=== PATIENT | male | born 1955 | race Caucasian/White ===

== ENCOUNTER 2017-10-22 15:07 | Inpatient (IN) ==
[2017-10-22] MEDS ORDERED: ONDANSETRON 4 MG/2 ML VIAL IV ONE (15:52)
[2017-10-22] MEDS ORDERED: ASPIRIN 325 MG TABLET PO STA (15:52)
[2017-10-22] MEDS ORDERED: MORPHINE 2 MG/1 ML SYRINGE IV STA (15:53)
[2017-10-22] MEDS ORDERED: MORPHINE 2 MG/1 ML SYRINGE ONE (16:29)
[2017-10-22] MEDS ORDERED: ONDANSETRON 4 MG/2 ML VIAL ONE (16:29)
[2017-10-22] MEDS ORDERED: ASPIRIN 325 MG TABLET ONE (16:29)
[2017-10-22 16:47] LABS: Basophils % 0.6 % (0.0-0.8); Eosinophils % 0.6 % (0.00-10.9); Hemoglobin 13.2 GM/DL (14.0-18.0); Immature Granulocytes % 0.2 %; Immature Granulocytes Absolute 0.01 #; Lymphocytes # 1.9 10*3/uL (1.4-4.0); Lymphocytes % 39.1 % (21.2-54.2); Mean Corpuscular HGB Conc 35.7 GM/DL (32-36); Mean Corpuscular Hemoglobin 31 PG (27-34); Mean Platelet Volume 9.6 FL (9.6-12.0); Monocytes # 0.3 10*3/uL (0.11-0.8); Monocytes % 6.9 % (1.7-12.7); Neutrophils # 2.6 10*3/uL (1.4-7.4); Neutrophils % 52.6 % (38.7-73.9); Platelet Count 181 T/CUMM (130-400); Red Cell Distribution Width 12.1 % (9.3-17.3)
[2017-10-22 16:58] LABS: PT Patient Result 10.8 SECS
[2017-10-22 17:07] LABS: Alanine Aminotransferase 18 U/L (16-61); Albumin 4.5 G/DL (3.4-5.0); Alkaline Phosphatase 51 U/L (45-117); Aspartate Amino Transferase 16 U/L (0-37); Blood Urea Nitrogen 14 MG/DL (7-18); Calcium 9.2 MG/DL (8.5-10.1); Glucose 87 MG/DL (74-106); Osmolality,Calculated 276.5 MOS/KG (273-304); Potassium 3.4 MMOL/L (3.5-5.1); Sodium 139 MMOL/L (136-145); Total Protein 7.2 G/DL (6.4-8.3); Troponin I Only < 0.015 NG/ML (0.00-0.045)
[2017-10-22 17:09] LABS: PT Patient Result 10.9 SECS
[2017-10-22] MEDS ORDERED: ALUM/MAG/SIMETH/LIDO VISC 1:1 30 ML BOTTLE PO PRN (18:25)
[2017-10-22] MEDS ORDERED: NITROGLYCERIN SL 0.4 MG TABLET SL PRN (18:25)
[2017-10-22 18:43] LABS: Risk Ratio 3.94; VLDL CHOLESTEROL 35.4 MG/DL
[2017-10-22] MEDS: GABAPENTIN 300 MG CAPSULE PO SCH (21:35)
[2017-10-22] MEDS: FAMOTIDINE 20 MG TABLET PO SCH (21:35)
[2017-10-23] MEDS ORDERED: POTASSIUM CHLORIDE 20 MEQ TABLET PO PRN (08:34)
[2017-10-23 08:50] LABS: Eosinophils % 0.8 % (0.00-10.9); Hematocrit 37.5 VOL% (42.0-52.0); Hemoglobin 13.6 GM/DL (14.0-18.0); Immature Granulocytes % 0.3 %; Immature Granulocytes Absolute 0.01 #; Lymphocytes # 1.7 10*3/uL (1.4-4.0); Lymphocytes % 42.8 % (21.2-54.2); Mean Corpuscular HGB Conc 36.3 GM/DL (32-36); Mean Corpuscular Hemoglobin 31 PG (27-34); Mean Corpuscular Volume 85.2 FL (87-102); Mean Platelet Volume 9.6 FL (9.6-12.0); Monocytes # 0.3 10*3/uL (0.11-0.8); Monocytes % 7.6 % (1.7-12.7); Neutrophils # 1.9 10*3/uL (1.4-7.4); Neutrophils % 47.5 % (38.7-73.9); Platelet Count 192 T/CUMM (130-400); Red Cell Distribution Width 12.1 % (9.3-17.3)
[2017-10-23] MEDS ORDERED: MAGNESIUM SULF RIDER 2 GM in PREMIX 1 EACH IV PRN (08:58)
[2017-10-23] MEDS ORDERED: POTASSIUM CHLORIDE RIDER 10 MEQ in PREMIX 1 EACH IV PRN (08:58)
[2017-10-23] MEDS ORDERED: DIAZEPAM 5 MG TABLET PO ONE (08:58)
[2017-10-23] MEDS ORDERED: diphenhydrAMINE CAP 25 MG CAPSULE PO ONE (08:58)
[2017-10-23] MEDS ORDERED: SODIUM CHLORIDE 0.9% 1,000 ML IV SCH (09:00)
[2017-10-23] MEDS ORDERED: amLODIPine 10 MG TABLET PO SCH (09:00)
[2017-10-23] MEDS ORDERED: hydroCHLOROthiazide 25 MG TABLET PO SCH (09:00)
[2017-10-23] MEDS ORDERED: CLOPIDOGREL 75 MG TABLET PO SCH (09:00)
[2017-10-23] MEDS ORDERED: SIMVASTATIN 40 MG TABLET PO SCH (09:00)
[2017-10-23 09:10] LABS: Calcium 9.4 MG/DL (8.5-10.1); Potassium 3.9 MMOL/L (3.5-5.1)
[2017-10-23] MEDS: FAMOTIDINE 20 MG TABLET PO SCH ×2 (10:22→20:57)
[2017-10-23] MEDS: BENAZEPRIL 10 MG TABLET PO SCH (12:28)
[2017-10-23] MEDS ORDERED: LIDOCAINE 1% 20 ML VIAL ONE (13:04)
[2017-10-23] MEDS ORDERED: MIDAZOLAM 2 MG/2 ML VIAL ONE (13:04)
[2017-10-23] MEDS ORDERED: NITROGLYCERIN DRIP 50 MG/250 ML BOTTLE IV ONE (13:04)
[2017-10-23] MEDS ORDERED: HEPARIN/NACL 0.9% 2 UNITS/ML 2,000 ML IV ONE (13:04)
[2017-10-23] MEDS ORDERED: VERAPAMIL 5 MG/2 ML VIAL ONE (13:05)
[2017-10-23] MEDS ORDERED: fentaNYL 100 MCG/2 ML VIAL ONE (13:05)
[2017-10-23] MEDS ORDERED: ENOXAPARIN 60 MG/0.6 ML SYRINGE ONE (13:23)
[2017-10-23] MEDS: ENOXAPARIN 80 MG/0.8 ML SYRINGE SUBCUT SCH (17:38)
[2017-10-23] MEDS ORDERED: ACETAMINOPHEN 500 MG TABLET PO PRN (19:26)
[2017-10-23] MEDS: METOPROLOL TARTRATE 50 MG TABLET PO SCH (20:57)
[2017-10-23] MEDS: GABAPENTIN 300 MG CAPSULE PO SCH (20:57)
[2017-10-23] MEDS ORDERED: METOPROLOL TARTRATE 50 MG TABLET PO SCH (21:00)
[2017-10-24 05:41] LABS: Calcium 8.5 MG/DL (8.5-10.1); Osmolality,Calculated 283.3 MOS/KG (273-304)
[2017-10-24 06:16] LABS: Basophils % 0.7 % (0.0-0.8); Eosinophils # 0.1 10*3/uL (0.0-0.87); Eosinophils % 1.4 % (0.00-10.9); Hematocrit 38.8 VOL% (42.0-52.0); Hemoglobin 13.4 GM/DL (14.0-18.0); Immature Granulocytes % 0.2 %; Immature Granulocytes Absolute 0.01 #; Lymphocytes # 2.8 10*3/uL (1.4-4.0); Lymphocytes % 48.3 % (21.2-54.2); Mean Corpuscular HGB Conc 34.5 GM/DL (32-36); Mean Corpuscular Hemoglobin 31 PG (27-34); Mean Corpuscular Volume 88.6 FL (87-102); Monocytes # 0.4 10*3/uL (0.11-0.8); Monocytes % 7.6 % (1.7-12.7); Neutrophils # 2.4 10*3/uL (1.4-7.4); Neutrophils % 41.8 % (38.7-73.9); Platelet Count 156 T/CUMM (130-400); Red Blood Count 4.38 MC/CUMM (3.8-5.5); Red Cell Distribution Width 11.9 % (9.3-17.3); White Blood Count 5.8 T/CUMM (4-12)
[2017-10-24] MEDS: ENOXAPARIN 80 MG/0.8 ML SYRINGE SUBCUT SCH ×2 (06:16→17:06)
[2017-10-24] MEDS: FAMOTIDINE 20 MG TABLET PO SCH ×2 (09:00→20:15)
[2017-10-24] MEDS: METOPROLOL TARTRATE 50 MG TABLET PO SCH ×2 (09:00→20:15)
[2017-10-24] MEDS: amLODIPine 5 MG TABLET PO SCH (09:00)
[2017-10-24] MEDS: BENAZEPRIL 10 MG TABLET PO SCH (09:00)
[2017-10-24] MEDS: SIMVASTATIN 20 MG TABLET PO SCH (09:01)
[2017-10-24] MEDS: GABAPENTIN 300 MG CAPSULE PO SCH (20:14)
[2017-10-24] MEDS: MORPHINE 2 MG/1 ML SYRINGE IV PRN (20:15)
[2017-10-25 05:29] LABS: Basophils % 0.9 % (0.0-0.8); Eosinophils % 0.9 % (0.00-10.9); Hemoglobin 13.2 GM/DL (14.0-18.0); Immature Granulocytes % 0.2 %; Immature Granulocytes Absolute 0.01 #; Lymphocytes # 2.2 10*3/uL (1.4-4.0); Lymphocytes % 51.2 % (21.2-54.2); Mean Corpuscular HGB Conc 34.7 GM/DL (32-36); Mean Corpuscular Hemoglobin 30 PG (27-34); Mean Corpuscular Volume 85.8 FL (87-102); Mean Platelet Volume 9.5 FL (9.6-12.0); Monocytes # 0.4 10*3/uL (0.11-0.8); Monocytes % 8.1 % (1.7-12.7); Neutrophils # 1.7 10*3/uL (1.4-7.4); Neutrophils % 38.7 % (38.7-73.9); Platelet Count 173 T/CUMM (130-400); Red Blood Count 4.43 MC/CUMM (3.8-5.5); Red Cell Distribution Width 11.9 % (9.3-17.3); White Blood Count 4.3 T/CUMM (4-12)
[2017-10-25 06:19] LABS: Calcium 8.7 MG/DL (8.5-10.1); Osmolality,Calculated 284.1 MOS/KG (273-304); Potassium 3.9 MMOL/L (3.5-5.1)
[2017-10-25] MEDS: METOPROLOL TARTRATE 50 MG TABLET PO SCH ×2 (09:17→20:30)
[2017-10-25] MEDS: ENOXAPARIN 80 MG/0.8 ML SYRINGE SUBCUT SCH ×2 (09:18→21:21)
[2017-10-25] MEDS: FAMOTIDINE 20 MG TABLET PO SCH ×2 (09:18→21:21)
[2017-10-25] MEDS: amLODIPine 5 MG TABLET PO SCH (09:18)
[2017-10-25] MEDS: SIMVASTATIN 20 MG TABLET PO SCH (09:18)
[2017-10-25] MEDS: BENAZEPRIL 10 MG TABLET PO SCH (09:18)
[2017-10-25] MEDS ORDERED: LACTULOSE 20 GM/30 ML UDCUP PO PRN (13:17)
[2017-10-25] MEDS: MORPHINE 2 MG/1 ML SYRINGE IV PRN ×2 (13:31→21:21)
[2017-10-25] MEDS: GABAPENTIN 300 MG CAPSULE PO SCH (21:21)
[2017-10-26 05:14] LABS: Basophils % 0.6 % (0.0-0.8); Eosinophils # 0.1 10*3/uL (0.0-0.87); Eosinophils % 1.5 % (0.00-10.9); Hematocrit 37.6 VOL% (42.0-52.0); Hemoglobin 13.7 GM/DL (14.0-18.0); Immature Granulocytes % 0.2 %; Immature Granulocytes Absolute 0.01 #; Lymphocytes # 2.4 10*3/uL (1.4-4.0); Lymphocytes % 49.7 % (21.2-54.2); Mean Corpuscular HGB Conc 36.4 GM/DL (32-36); Mean Corpuscular Hemoglobin 31 PG (27-34); Mean Corpuscular Volume 84.5 FL (87-102); Mean Platelet Volume 9.7 FL (9.6-12.0); Monocytes # 0.4 10*3/uL (0.11-0.8); Monocytes % 8.2 % (1.7-12.7); Neutrophils # 1.9 10*3/uL (1.4-7.4); Neutrophils % 39.8 % (38.7-73.9); Platelet Count 171 T/CUMM (130-400); Red Blood Count 4.45 MC/CUMM (3.8-5.5); Red Cell Distribution Width 11.8 % (9.3-17.3); White Blood Count 4.7 T/CUMM (4-12)
[2017-10-26 05:50] LABS: Calcium 9.1 MG/DL (8.5-10.1); Osmolality,Calculated 284.1 MOS/KG (273-304); Potassium 4.2 MMOL/L (3.5-5.1)
[2017-10-26] MEDS: BENAZEPRIL 10 MG TABLET PO SCH (09:04)
[2017-10-26] MEDS: METOPROLOL TARTRATE 50 MG TABLET PO SCH ×2 (09:04→20:55)
[2017-10-26] MEDS: SIMVASTATIN 20 MG TABLET PO SCH (09:05)
[2017-10-26] MEDS: amLODIPine 5 MG TABLET PO SCH (09:05)
[2017-10-26] MEDS: FAMOTIDINE 20 MG TABLET PO SCH ×2 (09:05→20:56)
[2017-10-26] MEDS: ENOXAPARIN 80 MG/0.8 ML SYRINGE SUBCUT SCH ×2 (09:05→20:56)
[2017-10-26] MEDS: ASPIRIN EC 81 MG TABLET PO SCH (11:20)
[2017-10-26] MEDS: MORPHINE 2 MG/1 ML SYRINGE IV PRN (15:46)
[2017-10-26] MEDS: CHLORHEXIDINE 4% SOLN 118 ML BOTTLE TOP SCH ×2 (15:49→20:57)
[2017-10-26 16:15] LABS: ABG Base Excess 0.2 MMOL/L (-2.5-2.5); ABG HCO3 24.5 MMOL/L (20-26); ABG PCO2 39.7 MM HG (35-48); ABG PH 7.404 (7.35-7.45); ABG PO2 77.9 MM HG (80-95); ABG TCO2 21.6 MMOL/L (23-27); Allen Test Positive; Pt O2 Delivery Device Room Air
[2017-10-26] MEDS: GABAPENTIN 300 MG CAPSULE PO SCH (20:56)
[2017-10-26] MEDS: CHLORHEXIDINE 0.12% ORAL RINSE 60 ML BOTTLE SWISH/SPIT SCH (20:57)
[2017-10-26] MEDS ORDERED: ROSUVASTATIN 20 MG TABLET PO SCH (21:00)
[2017-10-26] MEDS: SODIUM CHLORIDE 0.9% 1,000 ML IV SCH (23:37)
[2017-10-27 04:37] LABS: Basophils % 0.8 % (0.0-0.8); Eosinophils # 0.1 10*3/uL (0.0-0.87); Eosinophils % 1.6 % (0.00-10.9); Hematocrit 37.4 VOL% (42.0-52.0); Hemoglobin 13.1 GM/DL (14.0-18.0); Immature Granulocytes % 0.4 %; Immature Granulocytes Absolute 0.02 #; Lymphocytes # 2.5 10*3/uL (1.4-4.0); Lymphocytes % 48.5 % (21.2-54.2); Mean Corpuscular Hemoglobin 30 PG (27-34); Mean Platelet Volume 9.6 FL (9.6-12.0); Monocytes # 0.5 10*3/uL (0.11-0.8); Monocytes % 8.8 % (1.7-12.7); Neutrophils % 39.9 % (38.7-73.9); Platelet Count 178 T/CUMM (130-400); Red Blood Count 4.35 MC/CUMM (3.8-5.5); Red Cell Distribution Width 11.8 % (9.3-17.3); White Blood Count 5.1 T/CUMM (4-12)
[2017-10-27] MEDS ORDERED: CEFUROXIME INJ 1,500 MG in SYRINGE 1 EACH IV ONE (05:00)
[2017-10-27 05:05] LABS: Osmolality,Calculated 281.3 MOS/KG (273-304); Potassium 4.1 MMOL/L (3.5-5.1)
[2017-10-27] MEDS ORDERED: PAPAVERINE 60 MG/2 ML VIAL ONE (05:22)
[2017-10-27] MEDS ORDERED: TISSUE ADHESIVE 1 EACH APPLICATOR TOP ONE (05:22)
[2017-10-27] MEDS ORDERED: VANCOMYCIN 1,000 MG VIAL ONE (05:23)
[2017-10-27] MEDS: BENAZEPRIL 10 MG TABLET PO SCH ×2 (05:49→11:11)
[2017-10-27] MEDS: METOPROLOL TARTRATE 50 MG TABLET PO SCH ×2 (05:49→11:10)
[2017-10-27] MEDS: FAMOTIDINE 20 MG TABLET PO SCH ×2 (05:50→11:11)
[2017-10-27] MEDS: amLODIPine 5 MG TABLET PO SCH ×2 (05:50→11:11)
[2017-10-27] MEDS ORDERED: NITROPRUSSIDE 50 MG/2 ML VIAL ONE (07:07)
[2017-10-27] MEDS ORDERED: PHENYLEPHRINE DRIP 40 MG/250 ML PREMIX IV ONE (07:07)
[2017-10-27] MEDS ORDERED: CALCIUM CHLORIDE 1,000 MG/10 ML SYRINGE IV ONE (07:07)
[2017-10-27] MEDS ORDERED: SODIUM BICARBONATE 50 MEQ/50 ML SYRINGE IV ONE ×2 (07:08→11:00)
[2017-10-27] MEDS ORDERED: POTASSIUM CHLORIDE RIDER 100 ML IV ONE (07:08)
[2017-10-27] MEDS ORDERED: ALBUMIN 5% 12.5 GM/250 ML VIAL IV ONE (07:09)
[2017-10-27] MEDS ORDERED: EPINEPHrine 1 MG/10 ML SYRINGE ONE (07:09)
[2017-10-27 07:53] LABS: ABG HCO3 23.6 MMOL/L (20-26); ABG PCO2 33.4 MM HG (35-48); ABG PH 7.437 (7.35-7.45); ABG TCO2 19.9 MMOL/L (23-27); Glucose Heart Surgery 96 MG/DL (74-106); Hematocrit Heart Surgery 37.1 PERCENT (42-52); Hemoglobin Heart Surgery 12.1 G/DL (14.0-18.0); Ionized Calcium Arterial 1.18 MMOL/L (1.21-1.46); PCO2 Patient Temp Arterial 33.4 MMHG; PH Patient Temp Arterial 7.437; Patient Temperature 37 CELCIUS; Potassium Heart/CVR 3.8 MMOL/L (3.5-5.1); Sodium Heart/CVR 139 MMOL/L (135-145)
[2017-10-27 08:10] LABS: Apearance,Urine CLEAR (Clear); Bacteria,Urine Occasional /HPF (Few); Bilirubin,Urine Negative (Negative); Blood, Urine Negative (Negative); Glucose,Urine (UA) Negative (Negative); Ketones,Urine Negative (Negative); Mucus,Urine Occasional /LPF (Occasional); Nitrite,Urine Negative (Negative); Protein,Urine Negative; RBC,Urine 2 /HPF (0-4); Squamous Epithelial Cell,Urine Occasional /HPF (0-10); Urine Color Yellow (Yellow); Urine Specific Gravity 1.019 (1.001-1.035); Urine Urobilinogen < 2.0 EU/DL (0.2-1.0); WBC,Urine <1 /HPF (0-6)
[2017-10-27 09:28] LABS: Hematocrit Heart Surgery 25.4 PERCENT (42-52); Hemoglobin Heart Surgery 8.1 G/DL (14.0-18.0); PCO2 Patient Temp Venous 31.9 MM HG; PH Patient Temp Venous 7.473; Potassium Heart/CVR 4.8 MMOL/L (3.5-5.1); VBG Base Excess 0.2 MEQ/L (0-4); VBG HCO3 24.5 MEQ/L (24-28); VBG Oxygen Saturation 86.8 %; VBG PCO2 35.2 MMHG (41-51); VBG PH 7.443; VBG PO2 48.2 MMHG (17-40)
[2017-10-27 09:57] LABS: Hematocrit Heart Surgery 27.8 PERCENT (42-52); PCO2 Patient Temp Venous 27.1 MM HG; PH Patient Temp Venous 7.526; PO2 Patient Temp Venous 40.9 MM HG; Potassium Heart/CVR 4.1 MMOL/L (3.5-5.1); VBG Base Excess 0.4 MEQ/L (0-4); VBG HCO3 24.7 MEQ/L (24-28); VBG Oxygen Saturation 90.7 %; VBG PCO2 32.9 MMHG (41-51); VBG PH 7.466; VBG PO2 53.6 MMHG (17-40)
[2017-10-27] MEDS ORDERED: GABAPENTIN 300 MG CAPSULE PO ONE (10:07)
[2017-10-27 10:29] LABS: Hemoglobin Heart Surgery 10.4 G/DL (14.0-18.0); PCO2 Patient Temp Venous 28.6 MM HG; PH Patient Temp Venous 7.525; PO2 Patient Temp Venous 44.6 MM HG; Potassium Heart/CVR 4.4 MMOL/L (3.5-5.1); VBG HCO3 23.1 MEQ/L (24-28); VBG Oxygen Saturation 82.7 %; VBG PCO2 28.6 MMHG (41-51); VBG PH 7.525; VBG PO2 44.6 MMHG (17-40)
[2017-10-27] MEDS ORDERED: THROMBIN TOPICAL (RECOMBINANT) 5,000 UNIT VIAL TOP ONE (10:49)
[2017-10-27 10:50] LABS: ABG Base Excess 0.1 MMOL/L (-2.5-2.5); ABG HCO3 24.6 MMOL/L (20-26); ABG PCO2 29.6 MM HG (35-48); ABG PH 7.493 (7.35-7.45); ABG TCO2 20.6 MMOL/L (23-27); Glucose Heart Surgery 203 MG/DL (74-106); Hematocrit Heart Surgery 30.7 PERCENT (42-52); Hemoglobin Heart Surgery 9.9 G/DL (14.0-18.0); Ionized Calcium Arterial 1.28 MMOL/L (1.21-1.46); PCO2 Patient Temp Arterial 29.6 MMHG; PH Patient Temp Arterial 7.493; Patient Temperature 37 CELCIUS; Potassium Heart/CVR 4.1 MMOL/L (3.5-5.1); Sodium Heart/CVR 135 MMOL/L (135-145)
[2017-10-27] MEDS ORDERED: HEPARIN 10,000 UNIT/10 ML VIAL ONE (10:58)
[2017-10-27] MEDS ORDERED: DEXTROSE 5% KCL 20 MEQ 20 MEQ/1,000 ML BAG IV ONE (10:58)
[2017-10-27] MEDS ORDERED: FUROSEMIDE 20 MG/2 ML VIAL ONE (10:58)
[2017-10-27] MEDS ORDERED: ALBUMIN 25% 25 GM/100 ML VIAL IV ONE (10:58)
[2017-10-27] MEDS ORDERED: methylPREDNISolone SOD SUC 1,000 MG/8 ML VIAL ONE (11:00)
[2017-10-27] MEDS ORDERED: MANNITOL 12.5 GM/50 ML VIAL IV ONE (11:00)
[2017-10-27] MEDS ORDERED: PROTAMINE SULFATE 250 MG/25 ML VIAL IV ONE (11:00)
[2017-10-27] MEDS ORDERED: MAGNESIUM SULFATE 1 GM/2 ML VIAL ONE (11:00)
[2017-10-27] MEDS: CHLORHEXIDINE 4% SOLN 118 ML BOTTLE TOP SCH (11:10)
[2017-10-27] MEDS: ASPIRIN EC 81 MG TABLET PO SCH (11:10)
[2017-10-27] MEDS: CHLORHEXIDINE 0.12% ORAL RINSE 60 ML BOTTLE SWISH/SPIT SCH ×2 (11:11→20:16)
[2017-10-27] MEDS: SODIUM CHLORIDE 0.9% 1,000 ML IV SCH (11:11)
[2017-10-27] MEDS: GABAPENTIN 300 MG CAPSULE PO SCH (11:11)
[2017-10-27] MEDS ORDERED: MIDAZOLAM 10 MG/2 ML VIAL ONE ×2 (11:56→13:00)
[2017-10-27] MEDS ORDERED: SUFentanil 250 MCG/5 ML AMP ONE (11:56)
[2017-10-27] MEDS ORDERED: ePHEDrine 50 MG/ML AMP ONE (11:57)
[2017-10-27] MEDS ORDERED: CALCIUM CHLORIDE 1,000 MG/10 ML VIAL IV ONE (11:59)
[2017-10-27] MEDS ORDERED: HEPARIN/NACL 0.9% 2 UNITS/ML 500 ML IV ONE (12:00)
[2017-10-27] MEDS ORDERED: SEVOFLURANE 1 UNIT/15 MINUTE INH ONE (12:00)
[2017-10-27] MEDS ORDERED: VECURONIUM 10 MG VIAL IV ONE (12:00)
[2017-10-27] MEDS ORDERED: PHENYLEPHRINE 10 MG/1 ML VIAL IV ONE (12:00)
[2017-10-27] MEDS ORDERED: TRANEXAMIC ACID 1,000 MG/10 ML VIAL IV ONE (12:00)
[2017-10-27] MEDS ORDERED: SODIUM CHLORIDE 0.9% 500 ML IV ONE (12:01)
[2017-10-27] MEDS ORDERED: GLYCOPYRROLATE 0.4 MG/2 ML VIAL ONE (12:01)
[2017-10-27] MEDS ORDERED: NITROGLYCERIN DRIP 50 MG/250 ML BOTTLE IV ONE (12:01)
[2017-10-27] MEDS ORDERED: SODIUM CHLORIDE 0.9% 2,000 ML IV ONE (12:01)
[2017-10-27] MEDS ORDERED: LACTATED RINGERS 1,000 ML IV ONE (12:01)
[2017-10-27] MEDS ORDERED: SODIUM CHLORIDE 0.9% 100 ML IV ONE (12:01)
[2017-10-27] MEDS ORDERED: ETOMIDATE 40 MG/20 ML VIAL IV ONE (12:01)
[2017-10-27] MEDS ORDERED: ACETAMINOPHEN 650 MG SUPP RECTAL PRN (12:05)
[2017-10-27] MEDS ORDERED: CALCIUM CHLORIDE 1,000 MG/10 ML SYRINGE IV PRN (12:05)
[2017-10-27] MEDS ORDERED: CHLORHEXIDINE 4% SOLN 118 ML BOTTLE TOP PRN (12:05)
[2017-10-27] MEDS ORDERED: DEXTROSE 50% 25 GM/50 ML VIAL IV PRN ×2 (12:05)
[2017-10-27] MEDS ORDERED: INSULIN REGULAR 100 UNIT/ML IV PRN (12:05)
[2017-10-27] MEDS ORDERED: SODIUM CHLORIDE 0.45% 1,000 ML IV SCH (12:05)
[2017-10-27] MEDS ORDERED: MAGNESIUM SULF RIDER 4 GM in PREMIX 1 EACH IV PRN (12:05)
[2017-10-27] MEDS ORDERED: POTASSIUM CHLORIDE RIDER 10 MEQ in PREMIX 1 EACH IV PRN (12:05)
[2017-10-27] MEDS ORDERED: INSULIN REGULAR DRIP 100 ML IV SCH (12:05)
[2017-10-27] MEDS ORDERED: MAGNESIUM SULF RIDER 2 GM in PREMIX 1 EACH IV PRN (12:05)
[2017-10-27 12:17] LABS: ABG Base Excess -0.9 MMOL/L (-2.5-2.5); ABG HCO3 23.7 MMOL/L (20-26); ABG Oxygen Saturation 98.9 % (95-100); ABG PCO2 34.1 MM HG (35-48); ABG PH 7.433 (7.35-7.45); ABG TCO2 20.5 MMOL/L (23-27); Glucose Heart Surgery 163 MG/DL (74-106); Hematocrit Heart Surgery 32.8 PERCENT (42-52); Hemoglobin Heart Surgery 10.6 G/DL (14.0-18.0); Potassium Heart/CVR 3.4 MMOL/L (3.5-5.1)
[2017-10-27 12:22] LABS: Red Cell Distribution Width 11.8 % (9.3-17.3)
[2017-10-27 12:26] LABS: Basophils % 0.6 % (0.0-0.8); Eosinophils % 0.3 % (0.00-10.9); Hematocrit 29.2 VOL% (42.0-52.0); Immature Granulocytes % 0.8 %; Immature Granulocytes Absolute 0.05 #; Lymphocytes % 14.9 % (21.2-54.2); Mean Corpuscular HGB Conc 35.6 GM/DL (32-36); Mean Corpuscular Hemoglobin 31 PG (27-34); Mean Corpuscular Volume 86.1 FL (87-102); Mean Platelet Volume 9.7 FL (9.6-12.0); Monocytes # 0.3 10*3/uL (0.11-0.8); Monocytes % 4.8 % (1.7-12.7); Neutrophils # 5.1 10*3/uL (1.4-7.4); Neutrophils % 78.6 % (38.7-73.9); Platelet Count 168 T/CUMM (130-400); White Blood Count 6.5 T/CUMM (4-12)
[2017-10-27 12:27] LABS: Hemoglobin 10.4 GM/DL (14.0-18.0); Red Blood Count 3.39 MC/CUMM (3.8-5.5)
[2017-10-27 12:36] LABS: INR 1.2; PT Patient Result 12.2 SECS; Partial Thromboplastin Time 30.2 SECS (0-40)
[2017-10-27 12:45] LABS: Calcium 8.1 MG/DL (8.5-10.1); Potassium 3.5 MMOL/L (3.5-5.1)
[2017-10-27 12:47] LABS: Lactic Acid 1.7 MMOL/L (0.4-2.0)
[2017-10-27] MEDS: SODIUM CHLORIDE 0.45% 1,000 ML IV SCH (12:53)
[2017-10-27] MEDS: POTASSIUM CHLORIDE RIDER 20 MEQ in PREMIX 1 EACH IV PRN ×2 (12:53→14:23)
[2017-10-27] MEDS: ALBUMIN 5% 12.5 GM in PREMIX 1 EACH IV PRN ×4 (12:53→21:22)
[2017-10-27] MEDS: MIDAZOLAM 2 MG/2 ML VIAL IV PRN ×2 (12:58→13:51)
[2017-10-27] MEDS ORDERED: PHENYLEPHRINE DRIP 40 MG/250 ML PREMIX IV SCH (13:00)
[2017-10-27] MEDS: SODIUM CHLORIDE 0.9% 250 ML IV PRN ×2 (13:29→14:13)
[2017-10-27] MEDS ORDERED: LACTATED RINGERS 500 ML IV ONE (13:59)
[2017-10-27 15:44] LABS: ABG Base Excess -1.5 MMOL/L (-2.5-2.5); ABG HCO3 19.8 MMOL/L (20-26); ABG Oxygen Saturation 98.1 % (95-100); ABG PH 7.535 (7.35-7.45); ABG PO2 130.9 MM HG (80-95); ABG TCO2 20.6 MMOL/L (23-27); Glucose Heart Surgery 214 MG/DL (74-106); Hemoglobin Heart Surgery 11.4 G/DL (14.0-18.0); Potassium Heart/CVR 3.7 MMOL/L (3.5-5.1)
[2017-10-27] MEDS: INSULIN REGULAR 100 UNIT/ML SUBCUT SCH ×3 (16:21→23:37)
[2017-10-27] MEDS: MORPHINE 2 MG/1 ML SYRINGE IV PRN ×2 (17:35→23:32)
[2017-10-27] MEDS: ONDANSETRON 4 MG/2 ML VIAL IV PRN ×2 (17:43→23:33)
[2017-10-27] MEDS ORDERED: KETOROLAC 30 MG/1 ML VIAL IV ONE (17:45)
[2017-10-27] MEDS: CEFUROXIME INJ 1,500 MG in SYRINGE 1 EACH IV SCH (20:15)
[2017-10-28] MEDS: SODIUM CHLORIDE 0.9% 250 ML IV PRN (00:15)
[2017-10-28] MEDS: SODIUM CHLORIDE 0.45% 1,000 ML IV SCH (00:50)
[2017-10-28] MEDS: MORPHINE 10 MG/1 ML VIAL IV PRN ×2 (01:41→04:14)
[2017-10-28 04:11] LABS: Basophils % 0.1 % (0.0-0.8); Hematocrit 25.7 VOL% (42.0-52.0); Hemoglobin 9.3 GM/DL (14.0-18.0); Immature Granulocytes % 0.4 %; Immature Granulocytes Absolute 0.04 #; Lymphocytes # 0.6 10*3/uL (1.4-4.0); Lymphocytes % 5.6 % (21.2-54.2); Mean Corpuscular HGB Conc 36.2 GM/DL (32-36); Mean Corpuscular Hemoglobin 31 PG (27-34); Mean Corpuscular Volume 85.4 FL (87-102); Mean Platelet Volume 9.9 FL (9.6-12.0); Monocytes # 0.5 10*3/uL (0.11-0.8); Monocytes % 4.8 % (1.7-12.7); Neutrophils % 89.1 % (38.7-73.9); Platelet Count 140 T/CUMM (130-400); Red Blood Count 3.01 MC/CUMM (3.8-5.5); White Blood Count 10.2 T/CUMM (4-12)
[2017-10-28] MEDS: INSULIN REGULAR 100 UNIT/ML SUBCUT SCH ×5 (04:16→21:21)
[2017-10-28 04:30] LABS: Calcium 7.9 MG/DL (8.5-10.1); Osmolality,Calculated 282.4 MOS/KG (273-304); Potassium 3.8 MMOL/L (3.5-5.1)
[2017-10-28] MEDS: POTASSIUM CHLORIDE RIDER 20 MEQ in PREMIX 1 EACH IV PRN (04:45)
[2017-10-28] MEDS: ONDANSETRON 4 MG/2 ML VIAL IV PRN (08:47)
[2017-10-28] MEDS: MORPHINE 2 MG/1 ML SYRINGE IV PRN ×3 (08:48→19:46)
[2017-10-28] MEDS: CEFUROXIME INJ 1,500 MG in SYRINGE 1 EACH IV SCH ×2 (08:50→21:11)
[2017-10-28] MEDS: METOPROLOL TARTRATE 25 MG TABLET PO SCH ×2 (08:51→21:11)
[2017-10-28] MEDS: CHLORHEXIDINE 0.12% ORAL RINSE 60 ML BOTTLE SWISH/SPIT SCH ×2 (08:51→21:22)
[2017-10-28] MEDS: FUROSEMIDE 40 MG TABLET PO SCH (08:51)
[2017-10-28] MEDS: CLOPIDOGREL 75 MG TABLET PO SCH (08:51)
[2017-10-28] MEDS: ASPIRIN EC 325 MG TABLET PO SCH (08:51)
[2017-10-28] MEDS: KETOROLAC 15 MG/1 ML VIAL IV PRN ×2 (12:40→18:24)
[2017-10-28] MEDS: GABAPENTIN 300 MG CAPSULE PO SCH (21:11)
[2017-10-28] MEDS: ATORVASTATIN 40 MG TABLET PO SCH (21:11)
[2017-10-29] MEDS: INSULIN REGULAR 100 UNIT/ML SUBCUT SCH ×7 (00:05→20:34)
[2017-10-29] MEDS: MORPHINE 2 MG/1 ML SYRINGE IV PRN (01:10)
[2017-10-29] MEDS: KETOROLAC 15 MG/1 ML VIAL IV PRN ×3 (05:29→18:42)
[2017-10-29 05:54] LABS: Basophils % 0.1 % (0.0-0.8); Hematocrit 25.9 VOL% (42.0-52.0); Hemoglobin 9.2 GM/DL (14.0-18.0); Immature Granulocytes Absolute 0.12 #; Lymphocytes # 1.1 10*3/uL (1.4-4.0); Lymphocytes % 8.9 % (21.2-54.2); Mean Corpuscular HGB Conc 35.5 GM/DL (32-36); Mean Corpuscular Hemoglobin 31 PG (27-34); Mean Corpuscular Volume 87.5 FL (87-102); Mean Platelet Volume 10.2 FL (9.6-12.0); Monocytes # 0.8 10*3/uL (0.11-0.8); Monocytes % 6.2 % (1.7-12.7); Neutrophils # 10.5 10*3/uL (1.4-7.4); Neutrophils % 83.8 % (38.7-73.9); Platelet Count 149 T/CUMM (130-400); Red Blood Count 2.96 MC/CUMM (3.8-5.5); Red Cell Distribution Width 12.1 % (9.3-17.3); White Blood Count 12.5 T/CUMM (4-12)
[2017-10-29 06:23] LABS: Calcium 8.5 MG/DL (8.5-10.1); Osmolality,Calculated 285.1 MOS/KG (273-304); Potassium 3.8 MMOL/L (3.5-5.1)
[2017-10-29] MEDS: CLOPIDOGREL 75 MG TABLET PO SCH (08:28)
[2017-10-29] MEDS: FUROSEMIDE 40 MG TABLET PO SCH (08:28)
[2017-10-29] MEDS: METOPROLOL TARTRATE 25 MG TABLET PO SCH ×2 (08:28→20:48)
[2017-10-29] MEDS: ASPIRIN EC 325 MG TABLET PO SCH (08:29)
[2017-10-29] MEDS: CHLORHEXIDINE 0.12% ORAL RINSE 60 ML BOTTLE SWISH/SPIT SCH ×2 (08:30→20:50)
[2017-10-29] MEDS: ATORVASTATIN 40 MG TABLET PO SCH (20:48)
[2017-10-29] MEDS: GABAPENTIN 300 MG CAPSULE PO SCH (20:48)
[2017-10-30 06:12] LABS: Basophils % 0.1 % (0.0-0.8); Eosinophils % 0.1 % (0.00-10.9); Hematocrit 25.5 VOL% (42.0-52.0); Hemoglobin 8.8 GM/DL (14.0-18.0); Immature Granulocytes % 0.5 %; Immature Granulocytes Absolute 0.04 #; Lymphocytes # 1.7 10*3/uL (1.4-4.0); Lymphocytes % 20.5 % (21.2-54.2); Mean Corpuscular HGB Conc 34.5 GM/DL (32-36); Mean Corpuscular Hemoglobin 31 PG (27-34); Mean Corpuscular Volume 88.5 FL (87-102); Mean Platelet Volume 10.3 FL (9.6-12.0); Monocytes # 0.7 10*3/uL (0.11-0.8); Monocytes % 8.2 % (1.7-12.7); Neutrophils # 5.9 10*3/uL (1.4-7.4); Neutrophils % 70.6 % (38.7-73.9); Platelet Count 148 T/CUMM (130-400); Red Blood Count 2.88 MC/CUMM (3.8-5.5); Red Cell Distribution Width 11.9 % (9.3-17.3); White Blood Count 8.4 T/CUMM (4-12)
[2017-10-30 06:34] LABS: Calcium 8.2 MG/DL (8.5-10.1); Potassium 3.6 MMOL/L (3.5-5.1)
[2017-10-30] MEDS: CLOPIDOGREL 75 MG TABLET PO SCH (09:00)
[2017-10-30] MEDS: INSULIN REGULAR 100 UNIT/ML SUBCUT SCH ×4 (09:00→20:57)
[2017-10-30] MEDS: METOPROLOL TARTRATE 25 MG TABLET PO SCH ×2 (09:00→20:55)
[2017-10-30] MEDS: FUROSEMIDE 40 MG TABLET PO SCH (09:01)
[2017-10-30] MEDS: ASPIRIN EC 325 MG TABLET PO SCH (09:01)
[2017-10-30] MEDS: CHLORHEXIDINE 0.12% ORAL RINSE 60 ML BOTTLE SWISH/SPIT SCH ×2 (09:01→20:58)
[2017-10-30] MEDS ORDERED: POTASSIUM CHLORIDE 8 MEQ CAPSULE PO ONE (10:36)
[2017-10-30] MEDS: GABAPENTIN 300 MG CAPSULE PO SCH (20:55)
[2017-10-30] MEDS: ATORVASTATIN 40 MG TABLET PO SCH (20:55)
[2017-10-31 06:30] LABS: Basophils % 0.3 % (0.0-0.8); Eosinophils # 0.2 10*3/uL (0.0-0.87); Hematocrit 25.7 VOL% (42.0-52.0); Hemoglobin 9.3 GM/DL (14.0-18.0); Immature Granulocytes % 0.5 %; Immature Granulocytes Absolute 0.04 #; Lymphocytes # 1.7 10*3/uL (1.4-4.0); Lymphocytes % 22.8 % (21.2-54.2); Mean Corpuscular HGB Conc 36.2 GM/DL (32-36); Mean Corpuscular Hemoglobin 31 PG (27-34); Mean Corpuscular Volume 85.7 FL (87-102); Mean Platelet Volume 10.8 FL (9.6-12.0); Monocytes # 0.5 10*3/uL (0.11-0.8); Monocytes % 6.9 % (1.7-12.7); Neutrophils # 5.1 10*3/uL (1.4-7.4); Neutrophils % 67.5 % (38.7-73.9); Platelet Count 177 T/CUMM (130-400); Red Cell Distribution Width 12.1 % (9.3-17.3); White Blood Count 7.5 T/CUMM (4-12)
[2017-10-31 06:35] LABS: Calcium 8.2 MG/DL (8.5-10.1); Osmolality,Calculated 289.1 MOS/KG (273-304); Potassium 3.2 MMOL/L (3.5-5.1)
[2017-10-31] MEDS: INSULIN REGULAR 100 UNIT/ML SUBCUT SCH ×4 (08:35→21:53)
[2017-10-31] MEDS: CLOPIDOGREL 75 MG TABLET PO SCH (08:36)
[2017-10-31] MEDS: POTASSIUM CHLORIDE 20 MEQ TABLET PO PRN ×4 (08:36→14:35)
[2017-10-31] MEDS: CHLORHEXIDINE 0.12% ORAL RINSE 60 ML BOTTLE SWISH/SPIT SCH ×2 (08:36→21:59)
[2017-10-31] MEDS: METOPROLOL TARTRATE 25 MG TABLET PO SCH ×2 (08:36→21:52)
[2017-10-31] MEDS: FUROSEMIDE 40 MG TABLET PO SCH (08:36)
[2017-10-31] MEDS: ASPIRIN EC 81 MG TABLET PO SCH (08:36)
[2017-10-31] MEDS: ONDANSETRON 4 MG/2 ML VIAL IV PRN (16:34)
[2017-10-31] MEDS: KETOROLAC 15 MG/1 ML VIAL IV PRN ×2 (16:36→22:31)
[2017-10-31] MEDS: LEVOFLOXACIN 750 MG TABLET PO SCH (16:42)
[2017-10-31] MEDS: ATORVASTATIN 40 MG TABLET PO SCH (21:52)
[2017-10-31] MEDS: GABAPENTIN 300 MG CAPSULE PO SCH (21:53)
[2017-10-31] MEDS ORDERED: diphenhydrAMINE CAP 50 MG CAPSULE PO PRN (22:03)
[2017-11-01 05:04] LABS: Basophils % 0.2 % (0.0-0.8); Eosinophils # 0.2 10*3/uL (0.0-0.87); Eosinophils % 2.3 % (0.00-10.9); Hematocrit 23.2 VOL% (42.0-52.0); Hemoglobin 8.5 GM/DL (14.0-18.0); Immature Granulocytes % 0.5 %; Immature Granulocytes Absolute 0.04 #; Lymphocytes # 1.9 10*3/uL (1.4-4.0); Lymphocytes % 23.7 % (21.2-54.2); Mean Corpuscular HGB Conc 36.6 GM/DL (32-36); Mean Corpuscular Hemoglobin 32 PG (27-34); Mean Corpuscular Volume 86.6 FL (87-102); Mean Platelet Volume 10.6 FL (9.6-12.0); Monocytes # 0.7 10*3/uL (0.11-0.8); Monocytes % 8.6 % (1.7-12.7); Neutrophils # 5.3 10*3/uL (1.4-7.4); Neutrophils % 64.7 % (38.7-73.9); Platelet Count 203 T/CUMM (130-400); Red Blood Count 2.68 MC/CUMM (3.8-5.5); Red Cell Distribution Width 12.1 % (9.3-17.3); White Blood Count 8.1 T/CUMM (4-12)
[2017-11-01 05:17] LABS: Calcium 8.4 MG/DL (8.5-10.1); Osmolality,Calculated 291.8 MOS/KG (273-304); Potassium 3.8 MMOL/L (3.5-5.1)
[2017-11-01] MEDS: INSULIN REGULAR 100 UNIT/ML SUBCUT SCH ×4 (07:43→21:04)
[2017-11-01] MEDS: METOPROLOL TARTRATE 25 MG TABLET PO SCH ×2 (08:27→21:03)
[2017-11-01] MEDS: ASPIRIN EC 81 MG TABLET PO SCH (08:27)
[2017-11-01] MEDS: FUROSEMIDE 40 MG TABLET PO SCH (08:27)
[2017-11-01] MEDS: CHLORHEXIDINE 0.12% ORAL RINSE 60 ML BOTTLE SWISH/SPIT SCH ×2 (08:27→21:04)
[2017-11-01] MEDS: CLOPIDOGREL 75 MG TABLET PO SCH (08:27)
[2017-11-01] MEDS: LEVOFLOXACIN 750 MG TABLET PO SCH (15:51)
[2017-11-01] MEDS ORDERED: MORPHINE 10 MG/1 ML VIAL IV ONE (17:28)
[2017-11-01] MEDS: GABAPENTIN 300 MG CAPSULE PO SCH (21:03)
[2017-11-01] MEDS: KETOROLAC 15 MG/1 ML VIAL IV PRN (21:03)
[2017-11-01] MEDS: ATORVASTATIN 40 MG TABLET PO SCH (21:03)
[2017-11-02 05:18] LABS: Basophils % 0.2 % (0.0-0.8); Eosinophils # 0.2 10*3/uL (0.0-0.87); Eosinophils % 2.5 % (0.00-10.9); Hematocrit 22.1 VOL% (42.0-52.0); Hemoglobin 7.8 GM/DL (14.0-18.0); Immature Granulocytes % 0.5 %; Immature Granulocytes Absolute 0.05 #; Lymphocytes % 21.7 % (21.2-54.2); Mean Corpuscular HGB Conc 35.3 GM/DL (32-36); Mean Corpuscular Hemoglobin 31 PG (27-34); Mean Corpuscular Volume 87.4 FL (87-102); Mean Platelet Volume 10.3 FL (9.6-12.0); Monocytes # 0.8 10*3/uL (0.11-0.8); Monocytes % 8.9 % (1.7-12.7); Neutrophils # 6.2 10*3/uL (1.4-7.4); Neutrophils % 66.2 % (38.7-73.9); Platelet Count 249 T/CUMM (130-400); Red Blood Count 2.53 MC/CUMM (3.8-5.5); Red Cell Distribution Width 12.6 % (9.3-17.3); White Blood Count 9.3 T/CUMM (4-12)
[2017-11-02 05:36] LABS: Calcium 8.3 MG/DL (8.5-10.1); Osmolality,Calculated 283.4 MOS/KG (273-304)
[2017-11-02] MEDS: KETOROLAC 15 MG/1 ML VIAL IV PRN ×2 (05:36→11:08)
[2017-11-02] MEDS ORDERED: SODIUM CHLORIDE 0.9% 1,000 ML IV PRN ×6 (08:28→19:36)
[2017-11-02] MEDS: INSULIN REGULAR 100 UNIT/ML SUBCUT SCH ×4 (08:49→23:06)
[2017-11-02] MEDS: ASPIRIN EC 81 MG TABLET PO SCH (09:22)
[2017-11-02] MEDS: FUROSEMIDE 40 MG TABLET PO SCH (09:22)
[2017-11-02] MEDS: METOPROLOL TARTRATE 25 MG TABLET PO SCH (09:22)
[2017-11-02] MEDS: CHLORHEXIDINE 0.12% ORAL RINSE 60 ML BOTTLE SWISH/SPIT SCH ×2 (09:22→23:32)
[2017-11-02] MEDS: CLOPIDOGREL 75 MG TABLET PO SCH (09:22)
[2017-11-02] MEDS: ONDANSETRON 4 MG/2 ML VIAL IV PRN ×2 (12:44→22:30)
[2017-11-02] MEDS: LEVOFLOXACIN 750 MG TABLET PO SCH (15:38)
[2017-11-02 18:55] LABS: Hematocrit 22.2 VOL% (42.0-52.0); Hemoglobin 7.4 GM/DL (14.0-18.0)
[2017-11-02] MEDS ORDERED: SODIUM CHLORIDE 0.9% 1,000 ML IV ONE (19:47)
[2017-11-02 20:29] LABS: Basophils % 0.2 % (0.0-0.8); Eosinophils # 0.1 10*3/uL (0.0-0.87); Eosinophils % 1.4 % (0.00-10.9); Immature Granulocytes % 1.3 %; Immature Granulocytes Absolute 0.11 #; Lymphocytes # 1.1 10*3/uL (1.4-4.0); Lymphocytes % 13.2 % (21.2-54.2); Mean Corpuscular Hemoglobin 30 PG (27-34); Mean Corpuscular Volume 91.2 FL (87-102); Mean Platelet Volume 10.5 FL (9.6-12.0); Monocytes # 0.7 10*3/uL (0.11-0.8); Monocytes % 8.2 % (1.7-12.7); Neutrophils # 6.4 10*3/uL (1.4-7.4); Neutrophils % 75.7 % (38.7-73.9); Platelet Count 192 T/CUMM (130-400); Red Blood Count 1.93 MC/CUMM (3.8-5.5); Red Cell Distribution Width 13.1 % (9.3-17.3); White Blood Count 8.5 T/CUMM (4-12)
[2017-11-02 20:37] LABS: Hemoglobin 5.8 GM/DL (14.0-18.0)
[2017-11-02 20:38] LABS: Hematocrit 17.6 VOL% (42.0-52.0)
[2017-11-02 20:42] LABS: INR 1.2; PT Patient Result 12.2 SECS; Partial Thromboplastin Time 22.9 SECS (0-40)
[2017-11-02] MEDS: MORPHINE 2 MG/1 ML SYRINGE IV PRN (22:30)
[2017-11-02] MEDS ORDERED: POLYETHYLENE GLYCOL POWDER 255 GM BOTTLE PO ONE (23:00)
[2017-11-02] MEDS: ATORVASTATIN 40 MG TABLET PO SCH (23:31)
[2017-11-02] MEDS: BISACODYL 5 MG TABLET PO SCH (23:31)
[2017-11-02] MEDS: GABAPENTIN 300 MG CAPSULE PO SCH (23:31)
[2017-11-02] MEDS: PANTOPRAZOLE 40 MG VIAL IV SCH (23:35)
[2017-11-03] MEDS: MORPHINE 2 MG/1 ML SYRINGE IV PRN ×6 (01:15→21:17)
[2017-11-03] MEDS: traMADol 50 MG TABLET PO PRN ×2 (02:55→21:57)
[2017-11-03] MEDS ORDERED: AMIODARONE INJ 150 MG in DEXTROSE 5% 100 ML IV ONE (03:30)
[2017-11-03] MEDS ORDERED: SODIUM CHLORIDE 0.9% 1,000 ML IV PRN ×2 (03:31→04:52)
[2017-11-03] MEDS ORDERED: AMIODARONE 150 MG/3 ML VIAL ONE (03:32)
[2017-11-03 03:50] LABS: Basophils % 0.2 % (0.0-0.8); Eosinophils # 0.2 10*3/uL (0.0-0.87); Immature Granulocytes % 1.4 %; Immature Granulocytes Absolute 0.12 #; Lymphocytes # 1.9 10*3/uL (1.4-4.0); Lymphocytes % 21.3 % (21.2-54.2); Mean Corpuscular HGB Conc 34.9 GM/DL (32-36); Mean Corpuscular Hemoglobin 31 PG (27-34); Mean Corpuscular Volume 88.8 FL (87-102); Mean Platelet Volume 9.9 FL (9.6-12.0); Monocytes # 0.9 10*3/uL (0.11-0.8); Neutrophils # 5.8 10*3/uL (1.4-7.4); Neutrophils % 65.1 % (38.7-73.9); Platelet Count 270 T/CUMM (130-400); Red Blood Count 1.97 MC/CUMM (3.8-5.5); Red Cell Distribution Width 13.2 % (9.3-17.3); White Blood Count 8.9 T/CUMM (4-12)
[2017-11-03 03:54] LABS: Hemoglobin 6.1 GM/DL (14.0-18.0)
[2017-11-03 03:55] LABS: Hematocrit 17.5 VOL% (42.0-52.0)
[2017-11-03] MEDS ORDERED: AMIODARONE INJ 450 MG in DEXTROSE 5% 241 ML IV SCH ×2 (04:00→11:00)
[2017-11-03 04:24] LABS: Calcium 7.6 MG/DL (8.5-10.1); Osmolality,Calculated 287.3 MOS/KG (273-304); Potassium 3.3 MMOL/L (3.5-5.1)
[2017-11-03] MEDS ORDERED: MAGNESIUM CITRATE 300 ML BOTTLE PO ONE (07:00)
[2017-11-03] MEDS: BISACODYL 5 MG TABLET PO SCH ×2 (07:14→15:13)
[2017-11-03] MEDS: INSULIN REGULAR 100 UNIT/ML SUBCUT SCH ×4 (08:15→22:32)
[2017-11-03] MEDS ORDERED: EPINEPHrine 1 MG/ML VIAL ONE (09:02)
[2017-11-03] MEDS ORDERED: ePHEDrine 50 MG/ML AMP ONE (09:50)
[2017-11-03] MEDS: ONDANSETRON 4 MG/2 ML VIAL IV PRN (10:05)
[2017-11-03] MEDS: PANTOPRAZOLE INJ 200 MG in SODIUM CHLORIDE 0.9% 250 ML IV SCH (10:57)
[2017-11-03] MEDS ORDERED: CALCIUM GLUCONATE 1,000 MG in SODIUM CHLORIDE 0.9% 100 ML IV ONE (11:00)
[2017-11-03] MEDS: PANTOPRAZOLE 40 MG VIAL IV SCH (11:01)
[2017-11-03] MEDS ORDERED: ETOMIDATE 20 MG/10 ML VIAL IV ONE (11:35)
[2017-11-03] MEDS ORDERED: PROPOFOL 200 MG/20 ML VIAL IV ONE (11:35)
[2017-11-03] MEDS ORDERED: LIDOCAINE 1% 5 ML VIAL ONE (11:35)
[2017-11-03] MEDS: FUROSEMIDE 40 MG TABLET PO SCH (12:32)
[2017-11-03] MEDS: METOPROLOL TARTRATE 25 MG TABLET PO SCH ×2 (12:33→21:57)
[2017-11-03] MEDS: CHLORHEXIDINE 0.12% ORAL RINSE 60 ML BOTTLE SWISH/SPIT SCH ×2 (12:34→22:32)
[2017-11-03] MEDS ORDERED: FUROSEMIDE 40 MG/4 ML VIAL IV ONE (12:34)
[2017-11-03 12:48] LABS: Hematocrit 23.3 VOL% (42.0-52.0)
[2017-11-03 12:53] LABS: Hemoglobin 8.3 GM/DL (14.0-18.0)
[2017-11-03] MEDS: LEVOFLOXACIN 750 MG TABLET PO SCH (17:06)
[2017-11-03 20:04] LABS: Hematocrit 29.5 VOL% (42.0-52.0); Hemoglobin 10.3 GM/DL (14.0-18.0)
[2017-11-03] MEDS: AMIODARONE 200 MG TABLET PO SCH (21:57)
[2017-11-03] MEDS: ATORVASTATIN 40 MG TABLET PO SCH (21:57)
[2017-11-03] MEDS: GABAPENTIN 300 MG CAPSULE PO SCH (21:57)
[2017-11-04 05:29] LABS: Basophils % 0.4 % (0.0-0.8); Eosinophils # 0.2 10*3/uL (0.0-0.87); Eosinophils % 2.2 % (0.00-10.9); Immature Granulocytes % 1.6 %; Immature Granulocytes Absolute 0.13 #; Lymphocytes # 1.6 10*3/uL (1.4-4.0); Lymphocytes % 19.2 % (21.2-54.2); Mean Corpuscular HGB Conc 34.6 GM/DL (32-36); Mean Corpuscular Hemoglobin 30 PG (27-34); Mean Corpuscular Volume 85.5 FL (87-102); Mean Platelet Volume 9.9 FL (9.6-12.0); Monocytes # 0.8 10*3/uL (0.11-0.8); Monocytes % 9.7 % (1.7-12.7); Neutrophils # 5.5 10*3/uL (1.4-7.4); Neutrophils % 66.9 % (38.7-73.9); Platelet Count 202 T/CUMM (130-400); Red Blood Count 3.04 MC/CUMM (3.8-5.5); White Blood Count 8.2 T/CUMM (4-12)
[2017-11-04 05:59] LABS: Calcium 7.6 MG/DL (8.5-10.1); Osmolality,Calculated 280.4 MOS/KG (273-304); Potassium 3.6 MMOL/L (3.5-5.1)
[2017-11-04] MEDS: INSULIN REGULAR 100 UNIT/ML SUBCUT SCH ×3 (07:28→16:03)
[2017-11-04] MEDS: FUROSEMIDE 40 MG TABLET PO SCH (08:49)
[2017-11-04] MEDS: METOPROLOL TARTRATE 25 MG TABLET PO SCH ×2 (08:49→21:32)
[2017-11-04] MEDS: CHLORHEXIDINE 0.12% ORAL RINSE 60 ML BOTTLE SWISH/SPIT SCH ×2 (08:50→21:33)
[2017-11-04] MEDS: AMIODARONE 200 MG TABLET PO SCH ×2 (08:50→21:32)
[2017-11-04] MEDS ORDERED: POLYETHYLENE GLYCOL POWDER 17 GM PACK PO SCH (09:00)
[2017-11-04] MEDS: PANTOPRAZOLE INJ 200 MG in SODIUM CHLORIDE 0.9% 250 ML IV SCH (13:35)
[2017-11-04] MEDS ORDERED: SIMETHICONE CHEW 125 MG TABLET PO PRN (15:26)
[2017-11-04] MEDS: LEVOFLOXACIN 750 MG TABLET PO SCH (16:28)
[2017-11-04 18:38] LABS: Hematocrit 26.4 VOL% (42.0-52.0); Hemoglobin 9.1 GM/DL (14.0-18.0)
[2017-11-04] MEDS: GABAPENTIN 300 MG CAPSULE PO SCH (21:32)
[2017-11-04] MEDS: ATORVASTATIN 40 MG TABLET PO SCH (21:32)
[2017-11-04] MEDS: traMADol 50 MG TABLET PO PRN (22:50)
[2017-11-05] MEDS: INSULIN REGULAR 100 UNIT/ML SUBCUT SCH ×3 (00:09→11:34)
[2017-11-05] MEDS: POTASSIUM CHLORIDE 20 MEQ TABLET PO PRN ×2 (03:09→05:02)
[2017-11-05 05:46] LABS: Basophils % 0.3 % (0.0-0.8); Eosinophils # 0.2 10*3/uL (0.0-0.87); Eosinophils % 1.6 % (0.00-10.9); Hematocrit 25.6 VOL% (42.0-52.0); Hemoglobin 8.6 GM/DL (14.0-18.0); Immature Granulocytes % 1.4 %; Immature Granulocytes Absolute 0.14 #; Lymphocytes # 1.8 10*3/uL (1.4-4.0); Lymphocytes % 17.8 % (21.2-54.2); Mean Corpuscular HGB Conc 33.6 GM/DL (32-36); Mean Corpuscular Hemoglobin 29 PG (27-34); Mean Corpuscular Volume 87.1 FL (87-102); Mean Platelet Volume 9.9 FL (9.6-12.0); Monocytes # 0.8 10*3/uL (0.11-0.8); Neutrophils % 70.9 % (38.7-73.9); Platelet Count 211 T/CUMM (130-400); Red Blood Count 2.94 MC/CUMM (3.8-5.5); Red Cell Distribution Width 14.4 % (9.3-17.3); White Blood Count 9.9 T/CUMM (4-12)
[2017-11-05 06:20] LABS: Calcium 7.9 MG/DL (8.5-10.1); Osmolality,Calculated 275.5 MOS/KG (273-304)
[2017-11-05] MEDS: AMIODARONE 200 MG TABLET PO SCH (09:57)
[2017-11-05] MEDS: FUROSEMIDE 40 MG TABLET PO SCH (09:57)
[2017-11-05] MEDS: CHLORHEXIDINE 0.12% ORAL RINSE 60 ML BOTTLE SWISH/SPIT SCH (09:58)
[2017-11-05] MEDS: METOPROLOL TARTRATE 25 MG TABLET PO SCH (09:58)
[2017-11-05 11:48] VITALS: BP 100/69
[2017-11-05] MEDS ORDERED: PANTOPRAZOLE 40 MG VIAL IV SCH (21:00)
== END 2017-11-05 14:15 | disposition home health service (06) | DRG 233 ==
LOC: N.ED 15:07 → SUATTDRO 18:24 → N.EDINP 18:24 → N.TELES 20:07 → N.CVR 10-27 08:40 → N.TELES 10-28 12:00 → N.CVR 11-02 19:43 → N.ICU 11-02 21:44 → N.TELES 11-04 14:04
PROVIDERS: ADMIT Thoracic Surgery (Cardiothoracic Vascular Surgery); ATTEND Thoracic Surgery (Cardiothoracic Vascular Surgery)
PROC: CLCCHCL (ICD-10-PCS; 2017-10-23 15:45)

== ENCOUNTER 2018-02-22 19:58 | Observation (INO) ==
[2018-02-22] MEDS ORDERED: ONDANSETRON 4 MG/2 ML VIAL IV STA (20:38)
[2018-02-22] MEDS ORDERED: ALBUTEROL/IPRATROPIUM 3 ML NEB RESP TX STA (20:38)
[2018-02-22] MEDS ORDERED: ALUM/MAG/SIMETH/LIDO VISC 1:1 30 ML BOTTLE PO STA (20:38)
[2018-02-22] MEDS ORDERED: FUROSEMIDE 40 MG/4 ML VIAL IV STA (20:38)
[2018-02-22] MEDS ORDERED: ASPIRIN 325 MG TABLET PO STA (20:38)
[2018-02-22] MEDS ORDERED: NITROGLYCERIN 2% OINT 1 INCH/GM PACK TOP STA (20:38)
[2018-02-22] MEDS ORDERED: MORPHINE 4 MG/1 ML VIAL IV STA (20:38)
[2018-02-22 20:56] LABS: Basophils % 0.4 % (0.0-0.8); Eosinophils % 0.3 % (0.00-10.9); Hematocrit 35.7 VOL% (42.0-52.0); Hemoglobin 12.4 GM/DL (14.0-18.0); Immature Granulocytes % 0.4 %; Immature Granulocytes Absolute 0.04 #; Lymphocytes % 17.6 % (21.2-54.2); Mean Corpuscular HGB Conc 34.7 GM/DL (32-36); Mean Corpuscular Hemoglobin 29 PG (27-34); Mean Corpuscular Volume 84.2 FL (87-102); Mean Platelet Volume 10.2 FL (9.6-12.0); Monocytes # 0.8 10*3/uL (0.11-0.8); Monocytes % 7.4 % (1.7-12.7); Neutrophils # 8.2 10*3/uL (1.4-7.4); Neutrophils % 73.9 % (38.7-73.9); Platelet Count 165 T/CUMM (130-400); Red Blood Count 4.24 MC/CUMM (3.8-5.5); Red Cell Distribution Width 13.6 % (9.3-17.3); White Blood Count 11.1 T/CUMM (4-12)
[2018-02-22 21:12] LABS: PT Patient Result 10.6 SECS
[2018-02-22 21:22] LABS: Albumin 4.5 G/DL (3.4-5.0); Bilirubin,Total 1.4 MG/DL (0.2-1.0); Calcium 9.1 MG/DL (8.5-10.1); Osmolality,Calculated 283.1 MOS/KG (273-304); Potassium 3.5 MMOL/L (3.5-5.1)
[2018-02-22] MEDS ORDERED: ONDANSETRON 4 MG/2 ML VIAL IV PRN (23:13)
[2018-02-22] MEDS ORDERED: MORPHINE 4 MG/1 ML VIAL IV PRN (23:13)
[2018-02-23 05:55] LABS: Basophils % 0.3 % (0.0-0.8); Eosinophils % 0.4 % (0.00-10.9); Hematocrit 33.8 VOL% (42.0-52.0); Hemoglobin 11.7 GM/DL (14.0-18.0); Immature Granulocytes % 0.3 %; Immature Granulocytes Absolute 0.02 #; Lymphocytes # 1.5 10*3/uL (1.4-4.0); Lymphocytes % 20.7 % (21.2-54.2); Mean Corpuscular HGB Conc 34.6 GM/DL (32-36); Mean Corpuscular Hemoglobin 30 PG (27-34); Mean Corpuscular Volume 85.6 FL (87-102); Mean Platelet Volume 10.2 FL (9.6-12.0); Monocytes # 0.7 10*3/uL (0.11-0.8); Neutrophils % 68.3 % (38.7-73.9); Platelet Count 146 T/CUMM (130-400); Red Blood Count 3.95 MC/CUMM (3.8-5.5); Red Cell Distribution Width 13.5 % (9.3-17.3); White Blood Count 7.3 T/CUMM (4-12)
[2018-02-23 06:22] LABS: Calcium 8.7 MG/DL (8.5-10.1); Osmolality,Calculated 281.3 MOS/KG (273-304); Potassium 3.4 MMOL/L (3.5-5.1)
[2018-02-23] MEDS ORDERED: METOPROLOL TARTRATE 25 MG TABLET PO SCH (09:00)
[2018-02-23] MEDS ORDERED: CLOPIDOGREL 75 MG TABLET PO SCH (09:00)
[2018-02-23] MEDS ORDERED: FUROSEMIDE 40 MG TABLET PO SCH (09:00)
[2018-02-23] MEDS ORDERED: AMIODARONE 200 MG TABLET PO SCH (09:00)
[2018-02-23] MEDS ORDERED: ENOXAPARIN 40 MG/0.4 ML SYRINGE SUBCUT SCH (09:00)
[2018-02-23] MEDS ORDERED: PANTOPRAZOLE 40 MG TABLET PO SCH ×2 (09:00→10:30)
[2018-02-23] MEDS ORDERED: ASPIRIN EC 81 MG TABLET PO SCH (09:00)
[2018-02-23] MEDS ORDERED: NAPROXEN EC 500 MG TABLET PO SCH (10:00)
[2018-02-23] MEDS ORDERED: ACETAMINOPHEN 325 MG TABLET PO SCH (10:00)
[2018-02-23] MEDS ORDERED: CYANOCOBALAMIN 500 MCG TABLET PO SCH (10:15)
[2018-02-23] MEDS ORDERED: CHOLECALCIFEROL 1,000 UNIT TABLET PO SCH (10:15)
[2018-02-23] MEDS ORDERED: POTASSIUM CHLORIDE 10 MEQ TABLET PO SCH (10:30)
[2018-02-23] MEDS ORDERED: MONTELUKAST 10 MG TABLET PO SCH (10:30)
[2018-02-23 12:51] VITALS: BP 136/78
[2018-02-23] MEDS ORDERED: ATORVASTATIN 40 MG TABLET PO SCH (21:00)
[2018-02-23] MEDS ORDERED: GABAPENTIN 300 MG CAPSULE PO SCH (21:00)
[2018-02-23] MEDS ORDERED: NAPROXEN 500 MG TABLET PO SCH (21:00)
== END 2018-02-23 14:17 | disposition home or self-care (01) ==
LOC: N.ED 19:58 → N.EDINP 23:13 → INTOOBSV 23:13 → N.TELES 02-23 00:30
PROVIDERS: ADMIT Internal Medicine Geriatric Medicine; ATTEND Internal Medicine Geriatric Medicine

== ENCOUNTER 2018-09-30 21:13 | Observation (INO) ==
[2018-09-30 21:40] LABS: Basophils % 0.4 % (0.0-0.8); Eosinophils % 0.5 % (0.00-10.9); Hematocrit 38.4 VOL% (42.0-52.0); Hemoglobin 13.3 GM/DL (14.0-18.0); Immature Granulocytes % 0.4 %; Immature Granulocytes Absolute 0.03 #; Lymphocytes # 2.2 10*3/uL (1.4-4.0); Lymphocytes % 26.8 % (21.2-54.2); Mean Corpuscular HGB Conc 34.6 GM/DL (32-36); Mean Corpuscular Hemoglobin 30 PG (27-34); Mean Corpuscular Volume 87.9 FL (87-102); Mean Platelet Volume 9.3 FL (9.6-12.0); Monocytes # 0.7 10*3/uL (0.11-0.8); Neutrophils # 5.3 10*3/uL (1.4-7.4); Neutrophils % 63.9 % (38.7-73.9); Platelet Count 175 T/CUMM (130-400); Red Blood Count 4.37 MC/CUMM (3.8-5.5); Red Cell Distribution Width 12.3 % (9.3-17.3); White Blood Count 8.2 T/CUMM (4-12)
[2018-09-30 21:50] LABS: PT Patient Result 10.8 SECS; Partial Thromboplastin Time 27.6 SECS (0-40)
[2018-09-30 21:58] LABS: Albumin 4.3 G/DL (3.4-5.0); Bilirubin,Total 0.8 MG/DL (0.2-1.0); Calcium 8.8 MG/DL (8.5-10.1); Osmolality,Calculated 283.3 MOS/KG (273-304); Potassium 3.6 MMOL/L (3.5-5.1); Total Protein 7.2 G/DL (6.4-8.3)
[2018-09-30] MEDS ORDERED: NITROGLYCERIN SL 0.4 MG TABLET SL PRN (22:30)
[2018-09-30] MEDS ORDERED: ASPIRIN 325 MG TABLET PO STA (22:30)
[2018-10-01] MEDS ORDERED: ONDANSETRON 4 MG/2 ML VIAL IV PRN (00:30)
[2018-10-01] MEDS ORDERED: DOCUSATE SODIUM 100 MG CAPSULE PO PRN (00:30)
[2018-10-01] MEDS ORDERED: ENOXAPARIN 40 MG/0.4 ML SYRINGE SUBCUT SCH (00:30)
[2018-10-01] MEDS ORDERED: ACETAMINOPHEN 325 MG TABLET PO PRN (00:30)
[2018-10-01] MEDS ORDERED: ZALEPLON 5 MG CAPSULE PO PRN (00:30)
[2018-10-01] MEDS ORDERED: MORPHINE 4 MG/1 ML VIAL IV PRN (00:35)
[2018-10-01] MEDS ORDERED: INFLUENZA VIRUS VACCINE 0.5 ML SYRINGE IM ONE (03:40)
[2018-10-01] MEDS ORDERED: PNEUMOCOCCAL VACCINE (13 VALENT) 0.5 ML SYRINGE IM ONE (03:54)
[2018-10-01 05:12] LABS: Basophils % 0.6 % (0.0-0.8); Eosinophils # 0.1 10*3/uL (0.0-0.87); Eosinophils % 0.9 % (0.00-10.9); Hematocrit 36.2 VOL% (42.0-52.0); Hemoglobin 12.3 GM/DL (14.0-18.0); Immature Granulocytes % 0.3 %; Immature Granulocytes Absolute 0.02 #; Lymphocytes # 2.1 10*3/uL (1.4-4.0); Mean Corpuscular Hemoglobin 30 PG (27-34); Mean Corpuscular Volume 87.7 FL (87-102); Mean Platelet Volume 9.8 FL (9.6-12.0); Monocytes # 0.6 10*3/uL (0.11-0.8); Monocytes % 9.3 % (1.7-12.7); Neutrophils # 3.9 10*3/uL (1.4-7.4); Neutrophils % 57.9 % (38.7-73.9); Platelet Count 165 T/CUMM (130-400); Red Blood Count 4.13 MC/CUMM (3.8-5.5); Red Cell Distribution Width 12.4 % (9.3-17.3); White Blood Count 6.8 T/CUMM (4-12)
[2018-10-01 05:16] LABS: Calcium 8.7 MG/DL (8.5-10.1); Osmolality,Calculated 279.4 MOS/KG (273-304); Potassium 3.5 MMOL/L (3.5-5.1)
[2018-10-01 05:19] LABS: Risk Ratio 2.94; VLDL CHOLESTEROL 16.2 MG/DL
[2018-10-01] MEDS ORDERED: GABAPENTIN 300 MG CAPSULE PO SCH ×2 (09:00)
[2018-10-01] MEDS ORDERED: MONTELUKAST 10 MG TABLET PO SCH (09:00)
[2018-10-01] MEDS ORDERED: POTASSIUM CHLORIDE 10 MEQ TABLET PO SCH (09:00)
[2018-10-01] MEDS ORDERED: ACETAMINOPHEN 325 MG TABLET PO SCH (09:00)
[2018-10-01] MEDS ORDERED: CLOPIDOGREL 75 MG TABLET PO SCH (09:00)
[2018-10-01] MEDS ORDERED: PANTOPRAZOLE 40 MG TABLET PO SCH (09:00)
[2018-10-01] MEDS ORDERED: CYANOCOBALAMIN 500 MCG TABLET PO SCH (09:00)
[2018-10-01] MEDS ORDERED: CHOLECALCIFEROL 1,000 UNIT TABLET PO SCH (09:00)
[2018-10-01] MEDS ORDERED: METOPROLOL TARTRATE 25 MG TABLET PO SCH (09:00)
[2018-10-01] MEDS ORDERED: ASPIRIN EC 81 MG TABLET PO SCH (09:00)
[2018-10-01] MEDS ORDERED: POTASSIUM CHLORIDE 20 MEQ TABLET PO ONE (10:30)
[2018-10-01 11:28] VITALS: BP 148/77
[2018-10-01] MEDS ORDERED: IMIPRAMINE 25 MG TABLET PO SCH (21:00)
[2018-10-01] MEDS ORDERED: ATORVASTATIN 40 MG TABLET PO SCH (21:00)
== END 2018-10-01 15:00 | disposition home or self-care (01) ==
LOC: N.ED 21:13 → N.EDINP 21:13 → N.2E 10-01 00:52
PROVIDERS: ADMIT Hospitalist; ATTEND Hospitalist

== ENCOUNTER 2021-01-14 11:22 | Inpatient (IN) ==
[2021-01-14 12:19] LABS: Basophils % 0.8 % (0.0-0.8); Eosinophils % 0.8 % (0.00-10.9); Hematocrit 40.1 VOL% (42.0-52.0); Hemoglobin 13.8 GM/DL (14.0-18.0); Immature Granulocytes % 0.2 %; Immature Granulocytes Absolute 0.01 #; Lymphocytes # 1.7 10*3/uL (1.4-4.0); Mean Corpuscular HGB Conc 34.4 GM/DL (32-36); Mean Corpuscular Volume 89.1 FL (87-102); Mean Platelet Volume 9.7 FL (9.6-12.0); Monocytes % 7.5 % (1.7-12.7); Neutrophils % 56.7 % (38.7-73.9); Platelet Count 181 T/CUMM (130-400); Red Cell Distribution Width 12.3 % (9.3-17.3); White Blood Count 4.9 T/CUMM (4-12)
[2021-01-14 12:27] LABS: PT Patient Result 11.4 SECS (10.5-12.0); Partial Thromboplastin Time 27.4 SECS (23.9-33.8)
[2021-01-14 12:32] LABS: Albumin 4.3 G/DL (3.4-5.0); Calcium 9.1 MG/DL (8.5-10.1); Osmolality,Calculated 281.3 MOS/KG (273-304); Potassium 4.2 MMOL/L (3.5-5.1); Total Protein 6.9 G/DL (6.4-8.2)
[2021-01-14 12:44] LABS: Thyroid Stimulating Hormone 1.74 uIU/ml (0.358-3.74)
[2021-01-14] MEDS ORDERED: hydrALAZINE 20 MG/1 ML VIAL IV PRN (14:16)
[2021-01-14] MEDS ORDERED: BISACODYL 5 MG TABLET PO PRN (14:16)
[2021-01-14] MEDS ORDERED: ACETAMINOPHEN 325 MG TABLET PO PRN (14:16)
[2021-01-14] MEDS ORDERED: GLUCAGON 1 MG VIAL IM PRN (14:16)
[2021-01-14] MEDS ORDERED: ALUMINUM/MAGNES/SIMETH MAX STR 30 ML UDCUP PO PRN (14:16)
[2021-01-14] MEDS ORDERED: ONDANSETRON 4 MG/2 ML VIAL IV PRN (14:16)
[2021-01-14] MEDS ORDERED: DEXTROSE 50% 25 GM/50 ML VIAL IV PRN (14:16)
[2021-01-14] MEDS ORDERED: ENOXAPARIN 40 MG/0.4 ML SYRINGE ONE (14:28)
[2021-01-14] MEDS: ENOXAPARIN 40 MG/0.4 ML SYRINGE SUBCUT SCH (14:42)
[2021-01-14] MEDS ORDERED: ALBUTEROL/IPRATROPIUM 3 ML NEB RESP TX PRN (14:42)
[2021-01-14] MEDS: ATORVASTATIN 40 MG TABLET PO SCH (16:02)
[2021-01-14 19:42] LABS: Bilirubin,Urine Negative (Negative); Blood, Urine Negative (Negative); Glucose,Urine (UA) Negative (Negative); Ketones,Urine Negative (Negative); Mucus,Urine Occasional /LPF (Occasional); Nitrite,Urine Negative (Negative); Protein,Urine Negative; RBC,Urine 1 /HPF (0-4); Urine Appearance CLEAR (Clear); Urine Color Yellow (Yellow); Urine Specific Gravity 1.012 (1.001-1.035); Urine Urobilinogen < 2.0 EU/DL (0.2-1.0)
[2021-01-14] MEDS: MAGNESIUM OXIDE 400 MG TABLET PO SCH (21:44)
[2021-01-14] MEDS: traZODone 50 MG TABLET PO PRN (21:46)
[2021-01-14] MEDS: DOCUSATE SODIUM 100 MG CAPSULE PO SCH (21:48)
[2021-01-14 23:19] LABS: Barbiturates Screen,Urine Negative (Negative); Benzodiazepines Screen,Urine Negative (Negative); Cannabinoid Screen,Urine Negative (Negative); Opiate Screen,Urine Negative (Negative); Phencyclidine Screen,Urine Negative (Negative)
[2021-01-15] MEDS: GABAPENTIN 100 MG CAPSULE PO SCH ×4 (00:11→21:45)
[2021-01-15 05:19] LABS: Basophils % 0.7 % (0.0-0.8); Eosinophils # 0.1 10*3/uL (0.0-0.87); Eosinophils % 1.3 % (0.00-10.9); Hematocrit 36.6 VOL% (42.0-52.0); Hemoglobin 12.6 GM/DL (14.0-18.0); Immature Granulocytes % 0.2 %; Immature Granulocytes Absolute 0.01 #; Lymphocytes # 1.9 10*3/uL (1.4-4.0); Lymphocytes % 35.1 % (21.2-54.2); Mean Corpuscular HGB Conc 34.4 GM/DL (32-36); Mean Corpuscular Volume 89.3 FL (87-102); Mean Platelet Volume 9.6 FL (9.6-12.0); Monocytes % 7.5 % (1.7-12.7); Neutrophils % 55.2 % (38.7-73.9); Platelet Count 160 T/CUMM (130-400); Red Cell Distribution Width 12.1 % (9.3-17.3); White Blood Count 5.4 T/CUMM (4-12)
[2021-01-15 05:43] LABS: Calcium 8.7 MG/DL (8.5-10.1); Osmolality,Calculated 279.4 MOS/KG (273-304); Potassium 3.6 MMOL/L (3.5-5.1); Risk Ratio 3.47; VLDL CHOLESTEROL 25.2 MG/DL
[2021-01-15] MEDS ORDERED: PANTOPRAZOLE 40 MG TABLET PO SCH (09:00)
[2021-01-15] MEDS: DOCUSATE SODIUM 100 MG CAPSULE PO SCH ×2 (09:11→23:18)
[2021-01-15] MEDS: ASPIRIN EC 81 MG TABLET PO SCH (09:11)
[2021-01-15] MEDS: MONTELUKAST 10 MG TABLET PO SCH (09:11)
[2021-01-15] MEDS: POTASSIUM CHLORIDE 10 MEQ TABLET PO SCH (09:11)
[2021-01-15] MEDS: MAGNESIUM OXIDE 400 MG TABLET PO SCH ×2 (09:12→21:44)
[2021-01-15] MEDS: CLOPIDOGREL 75 MG TABLET PO SCH (09:12)
[2021-01-15] MEDS: CHOLECALCIFEROL 400 UNIT TABLET PO SCH (09:12)
[2021-01-15] MEDS: CYANOCOBALAMIN 500 MCG TABLET PO SCH (09:12)
[2021-01-15] MEDS ORDERED: MECLIZINE 12.5 MG TABLET PO PRN (11:50)
[2021-01-15] MEDS: ENOXAPARIN 40 MG/0.4 ML SYRINGE SUBCUT SCH (15:02)
[2021-01-15] MEDS: traZODone 50 MG TABLET PO PRN (21:45)
[2021-01-15] MEDS: PANTOPRAZOLE 40 MG TABLET PO SCH (21:45)
[2021-01-16] MEDS ORDERED: ceFAZolin 1,000 MG VIAL IRRIG ONE (06:00)
[2021-01-16] MEDS ORDERED: diphenhydrAMINE CAP 50 MG CAPSULE PO ONE (06:00)
[2021-01-16] MEDS ORDERED: DIAZEPAM 5 MG TABLET PO ONE (06:00)
[2021-01-16 06:22] LABS: Basophils % 0.5 % (0.0-0.8); Eosinophils % 0.9 % (0.00-10.9); Hematocrit 37.9 VOL% (42.0-52.0); Immature Granulocytes % 0.5 %; Immature Granulocytes Absolute 0.02 #; Lymphocytes # 1.6 10*3/uL (1.4-4.0); Lymphocytes % 38.4 % (21.2-54.2); Mean Corpuscular HGB Conc 34.3 GM/DL (32-36); Mean Platelet Volume 9.9 FL (9.6-12.0); Monocytes % 7.5 % (1.7-12.7); Neutrophils % 52.2 % (38.7-73.9); Platelet Count 163 T/CUMM (130-400); Red Blood Count 4.26 MC/CUMM (3.8-5.5); Red Cell Distribution Width 12.2 % (9.3-17.3); White Blood Count 4.3 T/CUMM (4-12)
[2021-01-16 06:37] LABS: Calcium 8.8 MG/DL (8.5-10.1); Osmolality,Calculated 283.1 MOS/KG (273-304); Potassium 3.8 MMOL/L (3.5-5.1)
[2021-01-16] MEDS ORDERED: SODIUM CHLORIDE 0.9% 1,000 ML IV SCH (07:00)
[2021-01-16] MEDS ORDERED: HEPARIN/NACL 0.9% 2 UNITS/ML 1,000 UNIT/500 ML BAG IV ONE (07:20)
[2021-01-16] MEDS ORDERED: LIDOCAINE 1% 20 ML VIAL ONE (07:20)
[2021-01-16] MEDS ORDERED: MIDAZOLAM 2 MG/2 ML VIAL ONE ×2 (07:21→07:55)
[2021-01-16] MEDS ORDERED: fentaNYL 100 MCG/2 ML VIAL ONE (07:21)
[2021-01-16] MEDS ORDERED: ceFAZolin 1,000 MG VIAL ONE (07:21)
[2021-01-16] MEDS ORDERED: TISSUE ADHESIVE 1 EACH APPLICATOR TOP ONE (07:41)
[2021-01-16] MEDS: ASPIRIN EC 81 MG TABLET PO SCH (11:44)
[2021-01-16] MEDS: MONTELUKAST 10 MG TABLET PO SCH (11:44)
[2021-01-16] MEDS: CHOLECALCIFEROL 400 UNIT TABLET PO SCH (11:44)
[2021-01-16] MEDS: CLOPIDOGREL 75 MG TABLET PO SCH (11:44)
[2021-01-16] MEDS: CYANOCOBALAMIN 500 MCG TABLET PO SCH (11:45)
[2021-01-16] MEDS: MAGNESIUM OXIDE 400 MG TABLET PO SCH ×2 (11:45→20:40)
[2021-01-16] MEDS: DOCUSATE SODIUM 100 MG CAPSULE PO SCH ×2 (11:45→20:40)
[2021-01-16] MEDS: MORPHINE 4 MG/1 ML VIAL IV PRN ×2 (11:45→20:40)
[2021-01-16] MEDS: PANTOPRAZOLE 40 MG TABLET PO SCH ×2 (11:46→20:40)
[2021-01-16] MEDS: POTASSIUM CHLORIDE 10 MEQ TABLET PO SCH (11:46)
[2021-01-16] MEDS: GABAPENTIN 100 MG CAPSULE PO SCH ×3 (11:46→20:40)
[2021-01-16] MEDS: ATORVASTATIN 40 MG TABLET PO SCH (15:39)
[2021-01-16] MEDS: traZODone 50 MG TABLET PO PRN (20:46)
[2021-01-17 06:40] LABS: Basophils % 0.6 % (0.0-0.8); Eosinophils # 0.1 10*3/uL (0.0-0.87); Hematocrit 36.9 VOL% (42.0-52.0); Hemoglobin 13.1 GM/DL (14.0-18.0); Immature Granulocytes % 0.2 %; Immature Granulocytes Absolute 0.01 #; Lymphocytes # 1.3 10*3/uL (1.4-4.0); Mean Corpuscular HGB Conc 35.5 GM/DL (32-36); Mean Corpuscular Volume 87.4 FL (87-102); Mean Platelet Volume 9.8 FL (9.6-12.0); Neutrophils % 65.2 % (38.7-73.9); Platelet Count 162 T/CUMM (130-400); Red Blood Count 4.22 MC/CUMM (3.8-5.5); Red Cell Distribution Width 12.1 % (9.3-17.3); White Blood Count 5.2 T/CUMM (4-12)
[2021-01-17 06:56] LABS: Calcium 8.9 MG/DL (8.5-10.1); Osmolality,Calculated 278.4 MOS/KG (273-304); Potassium 3.6 MMOL/L (3.5-5.1)
[2021-01-17 08:15] VITALS: BP 105/58
[2021-01-17] MEDS: CHOLECALCIFEROL 400 UNIT TABLET PO SCH (08:39)
[2021-01-17] MEDS: POTASSIUM CHLORIDE 10 MEQ TABLET PO SCH (08:39)
[2021-01-17] MEDS: ASPIRIN EC 81 MG TABLET PO SCH (08:39)
[2021-01-17] MEDS: CYANOCOBALAMIN 500 MCG TABLET PO SCH (08:39)
[2021-01-17] MEDS: MAGNESIUM OXIDE 400 MG TABLET PO SCH (08:39)
[2021-01-17] MEDS: DOCUSATE SODIUM 100 MG CAPSULE PO SCH (08:39)
[2021-01-17] MEDS: MONTELUKAST 10 MG TABLET PO SCH (08:39)
[2021-01-17] MEDS: GABAPENTIN 100 MG CAPSULE PO SCH (08:40)
[2021-01-17] MEDS: CLOPIDOGREL 75 MG TABLET PO SCH (08:40)
[2021-01-17] MEDS: PANTOPRAZOLE 40 MG TABLET PO SCH (08:40)
== END 2021-01-17 09:46 | disposition home or self-care (01) | DRG 244 ==
LOC: N.EDINP 11:22 → N.ED 11:22 → N.EDINP 15:10 → N.TELES 15:23
PROVIDERS: ADMIT Internal Medicine; ATTEND Internal Medicine

== ENCOUNTER 2021-02-11 10:19 | Observation (INO) ==
[2021-02-11 10:49] LABS: Basophils % 0.6 % (0.0-0.8); Eosinophils # 0.1 10*3/uL (0.0-0.87); Hemoglobin 12.4 GM/DL (14.0-18.0); Immature Granulocytes % 0.2 %; Immature Granulocytes Absolute 0.01 #; Lymphocytes # 1.8 10*3/uL (1.4-4.0); Lymphocytes % 36.8 % (21.2-54.2); Mean Corpuscular HGB Conc 34.4 GM/DL (32-36); Mean Corpuscular Volume 88.5 FL (87-102); Mean Platelet Volume 9.5 FL (9.6-12.0); Monocytes % 8.1 % (1.7-12.7); Neutrophils % 53.3 % (38.7-73.9); Platelet Count 164 T/CUMM (130-400); Red Blood Count 4.07 MC/CUMM (3.8-5.5); White Blood Count 4.8 T/CUMM (4-12)
[2021-02-11] MEDS ORDERED: SODIUM CHLORIDE 0.9% 1,000 ML IV STA (10:54)
[2021-02-11 11:02] LABS: PT Patient Result 11.2 SECS (10.5-12.0); Partial Thromboplastin Time 26.4 SECS (23.9-33.8)
[2021-02-11 11:28] LABS: Albumin 3.9 G/DL (3.4-5.0); Bilirubin,Total 0.4 MG/DL (0.2-1.0); Calcium 8.7 MG/DL (8.5-10.1); Osmolality,Calculated 281.4 MOS/KG (273-304); Potassium 3.9 MMOL/L (3.5-5.1); Total Protein 6.6 G/DL (6.4-8.2)
[2021-02-11 12:25] LABS: Bilirubin,Urine Negative (Negative); Blood, Urine Negative (Negative); Glucose,Urine (UA) Negative (Negative); Ketones,Urine Negative (Negative); Nitrite,Urine Negative (Negative); Protein,Urine Negative; RBC,Urine <1 /HPF (0-4); Urine Appearance CLEAR (Clear); Urine Color Straw (Yellow); Urine Specific Gravity 1.004 (1.001-1.035); Urine Urobilinogen < 2.0 EU/DL (0.2-1.0)
[2021-02-11] MEDS ORDERED: DOCUSATE SODIUM 100 MG CAPSULE PO PRN (13:23)
[2021-02-11] MEDS ORDERED: ONDANSETRON 4 MG/2 ML VIAL IV PRN (13:23)
[2021-02-11] MEDS ORDERED: ALUMINUM/MAGNES/SIMETH MAX STR 30 ML UDCUP PO PRN (13:23)
[2021-02-11] MEDS ORDERED: DEXTROSE 50% 25 GM/50 ML VIAL IV PRN (13:23)
[2021-02-11] MEDS ORDERED: GLUCAGON 1 MG VIAL IM PRN (13:23)
[2021-02-11] MEDS ORDERED: ENOXAPARIN 40 MG/0.4 ML SYRINGE SUBCUT SCH (13:30)
[2021-02-11 14:11] LABS: Barbiturates Screen,Urine Negative (Negative); Benzodiazepines Screen,Urine Negative (Negative); Cannabinoid Screen,Urine Negative (Negative); Opiate Screen,Urine Negative (Negative); Phencyclidine Screen,Urine Negative (Negative)
[2021-02-11] MEDS ORDERED: traZODone 50 MG TABLET PO PRN (14:17)
[2021-02-11] MEDS ORDERED: GABAPENTIN 300 MG CAPSULE PO SCH (15:00)
[2021-02-11] MEDS ORDERED: MAGNESIUM OXIDE 400 MG TABLET PO SCH (21:00)
[2021-02-11] MEDS ORDERED: ATORVASTATIN 40 MG TABLET PO SCH (21:00)
[2021-02-12 05:06] LABS: Basophils % 0.8 % (0.0-0.8); Eosinophils # 0.1 10*3/uL (0.0-0.87); Eosinophils % 1.9 % (0.00-10.9); Hematocrit 35.7 VOL% (42.0-52.0); Hemoglobin 12.6 GM/DL (14.0-18.0); Lymphocytes # 2.2 10*3/uL (1.4-4.0); Lymphocytes % 42.4 % (21.2-54.2); Mean Corpuscular HGB Conc 35.3 GM/DL (32-36); Mean Corpuscular Volume 87.3 FL (87-102); Mean Platelet Volume 9.7 FL (9.6-12.0); Neutrophils % 46.9 % (38.7-73.9); Platelet Count 157 T/CUMM (130-400); Red Blood Count 4.09 MC/CUMM (3.8-5.5); Red Cell Distribution Width 11.9 % (9.3-17.3); White Blood Count 5.2 T/CUMM (4-12)
[2021-02-12 05:23] LABS: Calcium 8.6 MG/DL (8.5-10.1); Osmolality,Calculated 279.3 MOS/KG (273-304); Potassium 3.7 MMOL/L (3.5-5.1)
[2021-02-12] MEDS ORDERED: LACTATED RINGERS 500 ML IV ONE (07:05)
[2021-02-12] MEDS ORDERED: MONTELUKAST 10 MG TABLET PO SCH (09:00)
[2021-02-12] MEDS ORDERED: PANTOPRAZOLE 40 MG TABLET PO SCH (09:00)
[2021-02-12] MEDS ORDERED: ASPIRIN EC 81 MG TABLET PO SCH (09:00)
[2021-02-12] MEDS ORDERED: CHOLECALCIFEROL 400 UNIT TABLET PO SCH (09:00)
[2021-02-12] MEDS ORDERED: POTASSIUM CHLORIDE 10 MEQ TABLET PO SCH (09:00)
[2021-02-12] MEDS ORDERED: CLOPIDOGREL 75 MG TABLET PO SCH (09:00)
[2021-02-12 09:15] VITALS: BP 150/87
[2021-02-13] MEDS ORDERED: ENALAPRIL 10 MG TABLET PO SCH (09:00)
== END 2021-02-12 10:51 | disposition home or self-care (01) ==
LOC: N.EDINP 10:19 → N.ED 10:19 → N.EDINP 22:08 → N.TELES 22:36
PROVIDERS: ADMIT Internal Medicine; ATTEND Internal Medicine

== ENCOUNTER 2021-05-20 11:35 | Observation (INO) ==
[2021-05-20 12:08] LABS: Basophils % 0.9 % (0.0-0.8); Eosinophils % 0.6 % (0.00-10.9); Hematocrit 36.9 VOL% (42.0-52.0); Hemoglobin 12.7 GM/DL (14.0-18.0); Immature Granulocytes % 0.4 %; Immature Granulocytes Absolute 0.02 #; Lymphocytes # 1.6 10*3/uL (1.4-4.0); Lymphocytes % 33.6 % (21.2-54.2); Mean Corpuscular HGB Conc 34.4 GM/DL (32-36); Mean Corpuscular Volume 87.2 FL (87-102); Mean Platelet Volume 9.5 FL (9.6-12.0); Monocytes % 7.5 % (1.7-12.7); Platelet Count 173 T/CUMM (130-400); Red Blood Count 4.23 MC/CUMM (3.8-5.5); Red Cell Distribution Width 12.4 % (9.3-17.3); White Blood Count 4.6 T/CUMM (4-12)
[2021-05-20 12:56] LABS: Albumin 3.8 G/DL (3.4-5.0); Bilirubin,Total 0.7 MG/DL (0.20-1.00); Calcium 8.6 MG/DL (8.5-10.1); Osmolality,Calculated 285.1 MOS/KG (273-304); Potassium 3.8 MMOL/L (3.5-5.1); Total Protein 6.5 G/DL (6.4-8.2)
[2021-05-20] MEDS ORDERED: ONDANSETRON 4 MG/2 ML VIAL IV PRN (13:40)
[2021-05-20] MEDS ORDERED: hydrALAZINE 20 MG/1 ML VIAL IV PRN (13:40)
[2021-05-20] MEDS ORDERED: ACETAMINOPHEN 325 MG TABLET PO PRN (13:40)
[2021-05-20] MEDS: PANTOPRAZOLE 40 MG TABLET PO SCH (14:34)
[2021-05-20] MEDS: ENOXAPARIN 40 MG/0.4 ML SYRINGE SUBCUT SCH (14:35)
[2021-05-20] MEDS ORDERED: INFLUENZA VIRUS VACCINE 0.5 ML SYRINGE IM ONE (16:07)
[2021-05-20] MEDS ORDERED: MAGNESIUM SULF RIDER 2 GM/50 ML PREMIX IV ONE (17:13)
[2021-05-20] MEDS ORDERED: POTASSIUM CHLORIDE 20 MEQ TABLET PO ONE (17:13)
[2021-05-20] MEDS: ATORVASTATIN 40 MG TABLET PO SCH (18:40)
[2021-05-20] MEDS: traZODone 50 MG TABLET PO PRN (21:50)
[2021-05-21] MEDS: diphenhydrAMINE CAP 25 MG CAPSULE PO SCH ×2 (00:04→20:24)
[2021-05-21] MEDS: ACETAMINOPHEN 500 MG TABLET PO SCH ×2 (00:04→20:24)
[2021-05-21 05:54] LABS: Basophils # 0.1 10*3/uL (0.0-0.2); Basophils % 0.9 % (0.0-0.8); Eosinophils # 0.1 10*3/uL (0.0-0.87); Eosinophils % 1.1 % (0.00-10.9); Hematocrit 36.3 VOL% (42.0-52.0); Hemoglobin 12.6 GM/DL (14.0-18.0); Immature Granulocytes % 0.4 %; Immature Granulocytes Absolute 0.02 #; Lymphocytes # 2.2 10*3/uL (1.4-4.0); Lymphocytes % 39.3 % (21.2-54.2); Mean Corpuscular HGB Conc 34.7 GM/DL (32-36); Mean Corpuscular Volume 88.8 FL (87-102); Mean Platelet Volume 9.6 FL (9.6-12.0); Neutrophils % 50.3 % (38.7-73.9); Platelet Count 170 T/CUMM (130-400); Red Blood Count 4.09 MC/CUMM (3.8-5.5); Red Cell Distribution Width 12.2 % (9.3-17.3); White Blood Count 5.5 T/CUMM (4-12)
[2021-05-21 06:11] LABS: Calcium 8.3 MG/DL (8.5-10.1); Osmolality,Calculated 278.4 MOS/KG (273-304); Potassium 3.7 MMOL/L (3.5-5.1)
[2021-05-21 06:22] LABS: Calcium 8.3 MG/DL (8.5-10.1); Osmolality,Calculated 281.3 MOS/KG (273-304); Potassium 3.6 MMOL/L (3.5-5.1); Risk Ratio 3.69; Thyroid Stimulating Hormone 2.49 uIU/ml (0.358-3.74)
[2021-05-21] MEDS ORDERED: ENALAPRIL 20 MG TABLET PO SCH (09:00)
[2021-05-21] MEDS ORDERED: amLODIPine 5 MG TABLET PO PRN (09:38)
[2021-05-21] MEDS: CLOPIDOGREL 75 MG TABLET PO SCH (10:12)
[2021-05-21] MEDS: ASPIRIN EC 81 MG TABLET PO SCH (10:13)
[2021-05-21] MEDS: METOPROLOL SUCCINATE XL 25 MG TABLET PO SCH (10:13)
[2021-05-21] MEDS: PANTOPRAZOLE 40 MG TABLET PO SCH (10:16)
[2021-05-21] MEDS: ENOXAPARIN 40 MG/0.4 ML SYRINGE SUBCUT SCH (14:33)
[2021-05-21] MEDS: traZODone 50 MG TABLET PO PRN (20:24)
[2021-05-22 04:27] LABS: Basophils % 0.9 % (0.0-0.8); Eosinophils # 0.1 10*3/uL (0.0-0.87); Eosinophils % 1.3 % (0.00-10.9); Hematocrit 37.3 VOL% (42.0-52.0); Hemoglobin 12.9 GM/DL (14.0-18.0); Immature Granulocytes % 0.4 %; Immature Granulocytes Absolute 0.02 #; Lymphocytes # 1.8 10*3/uL (1.4-4.0); Lymphocytes % 38.6 % (21.2-54.2); Mean Corpuscular HGB Conc 34.6 GM/DL (32-36); Mean Corpuscular Volume 88.6 FL (87-102); Mean Platelet Volume 9.4 FL (9.6-12.0); Monocytes % 9.4 % (1.7-12.7); Neutrophils % 49.4 % (38.7-73.9); Platelet Count 167 T/CUMM (130-400); Red Blood Count 4.21 MC/CUMM (3.8-5.5); Red Cell Distribution Width 12.2 % (9.3-17.3); White Blood Count 4.7 T/CUMM (4-12)
[2021-05-22 04:54] LABS: Calcium 8.4 MG/DL (8.5-10.1); Osmolality,Calculated 283.1 MOS/KG (273-304); Potassium 3.7 MMOL/L (3.5-5.1)
[2021-05-22 07:40] VITALS: BP 139/85
[2021-05-22] MEDS: ATORVASTATIN 40 MG TABLET PO SCH (09:13)
[2021-05-22] MEDS: METOPROLOL SUCCINATE XL 25 MG TABLET PO SCH (09:14)
[2021-05-22] MEDS: ASPIRIN EC 81 MG TABLET PO SCH (09:14)
[2021-05-22] MEDS: CLOPIDOGREL 75 MG TABLET PO SCH (09:14)
[2021-05-22] MEDS: PANTOPRAZOLE 40 MG TABLET PO SCH (09:15)
[2021-05-22] MEDS ORDERED: GABAPENTIN 300 MG CAPSULE PO SCH (09:30)
== END 2021-05-22 10:12 | disposition home or self-care (01) ==
LOC: N.ED 11:35 → N.EDINP 13:40 → INTOOBSV 13:40 → SUATTDRO 13:40 → N.EDINP 15:32 → N.TELEN 15:43
PROVIDERS: ADMIT Internal Medicine; ATTEND Internal Medicine